=== PATIENT | male | born 1960 | race Caucasian/White ===

== ENCOUNTER 2018-08-19 12:47 | Inpatient (IN) | payer SELFPAY ==
[2018-08-19] MEDS ORDERED: PIPERACILLIN/TAZOBACTAM 3.375 GM VIAL IV ONE (13:06)
[2018-08-19] MEDS ORDERED: VANCOMYCIN HCL INJ 1000 MG VIAL IV ONE (13:06)
[2018-08-19] MEDS ORDERED: NORMAL SALINE 1000 ML 1,000 ML IV ONE (13:13)
[2018-08-19 13:22] LABS: HEMATOCRIT 43.8 % (37.9-51.0); HEMOGLOBIN 14.4 g/dL (13.5-17.0); MEAN CORPUSCULAR HEMOGLOBIN 29.3 pg (27.0-33.4); MEAN CORPUSCULAR HGB CONC 32.9 g/dL (32.0-36.0); MEAN CORPUSCULAR VOLUME 89 fl (80-97); PLATELET COUNT 301 10^3/uL (150-450); RED BLOOD COUNT 4.93 10^6/uL (4.35-5.55); RED CELL DISTRIBUTION WIDTH 14.9 % (11.5-14.0); WHITE BLOOD COUNT 23.4 10^3/uL (4.0-10.5)
[2018-08-19] MEDS ORDERED: RINGERS SOLUTION,LACTATED 1,000 ML IV ONE ×2 (13:43→13:44)
[2018-08-19 13:44] LABS: ALANINE AMINOTRANSFERASE 44 U/L (21-72); ALBUMIN 3.5 g/dL (3.5-5.0); ALKALINE PHOSPHATASE 85 U/L (38-126); ANION GAP 15 (5-19); ASPARTATE AMINO TRANSFERASE 36 U/L (17-59); BILIRUBIN,DIRECT 0.7 mg/dL (0.0-0.4); BILIRUBIN,TOTAL 1.4 mg/dL (0.2-1.3); BLOOD UREA NITROGEN 27 mg/dL (7-20); CALCIUM 8.7 mg/dL (8.4-10.2); CARBON DIOXIDE 25 mmol/L (22-30); CHLORIDE 99 mmol/L (98-107); GLUCOSE 231 mg/dL (75-110); POTASSIUM 4.4 mmol/L (3.6-5.0); SODIUM 139.3 mmol/L (137-145); TOTAL PROTEIN 6.3 g/dL (6.3-8.2)
--- NOTE | 2018-08-19 13:50 | ER Document Report ---
ED General - General Chief Complaint: Shortness Of Breath Stated Complaint: DIFFICULTY BREATHING Time Seen by Provider: 08/19/18 13:05 Notes: Patient is a 58-year-old male who presents today with the onset 4 days ago of a fever of 101 with some chills. He then developed some shortness of breath with coughing. He denies any and all chest pain. No calf pain or leg swelling above baseline. Diarrhea x2 yesterday with vomiting x1. Patient denies any sore throat, difficulty swallowing, flank pain or dysuria. Patient went to his primary care physician was diagnosed with a lower lobe pneumonia and found to have an oxygen saturation of 89%. Patient has no past medical history of asthma or COPD. TRAVEL OUTSIDE OF THE [place] IN LAST 30 DAYS: No - Related Data Allergies/Adverse Reactions: No Known Allergies Allergy (Verified 02/03/16 00:46) Past Medical History - Social History Smoking Status: Never Smoker Family History: Reviewed & Not Pertinent Patient has suicidal ideation: No Patient has homicidal ideation: No - Past Medical History Cardiac Medical History: Reports: Hx Hypertension Pulmonary Medical History: Reports: Hx Bronchitis Renal/ Medical History: Denies: Hx Peritoneal Dialysis Past Surgical History: Reports: Hx Orthopedic Surgery - L knee x2 - Immunizations Hx Diphtheria, Pertussis, Tetanus Vaccination: Yes Review of Systems - Review of Systems Constitutional: Fever EENT: Nose congestion, Nose discharge. denies: Eye discharge Cardiovascular: denies: Chest pain, Palpitations Respiratory: Cough, Short of breath. denies: Hurts to breathe Gastrointestinal: Diarrhea, Vomiting Genitourinary: denies: Dysuria Musculoskeletal: denies: Leg swelling Skin: Other - no hives. denies: Rash Neurological/Psychological: Other - no slurred speech -: Yes All other systems reviewed and negative Physical Exam - Vital signs Vitals: Temp Pulse Resp BP 99.2 F 133 H 30 H 126/76 H 08/19/18 12:59 08/19/18 12:59 08/19/18 12:59 08/19/18 12:59 Interpretation: Normal Notes: Reviewed vital signs and nursing note as charted by RN. CONSTITUTIONAL: Alert and oriented and responds appropriately to questions. Well-appearing; well-nourished HEAD: Normocephalic; atraumatic EYES: PERRL; Conjunctivae clear, sclerae non-icteric ENT: Normal nose; minimal bilaterally nonpurulent rhinorrhea; moist mucous membranes; pharynx without lesions noted NECK: Supple without meningismus; non-tender; no cervical lymphadenopathy, no masses CARD: Regular rate and rhythm; no murmurs; symmetric distal pulses RESP: Normal chest excursion; minimal tachypnea; patient has rhonchi to the right lower lung field without wheezing or rales appreciated ABD/GI: Normal bowel sounds; non-distended; soft, non-tender BACK: The back appears normal and is non-tender to palpation EXT: Normal ROM in all joints; non-tender to palpation; 1 plus pitting edema to bilateral lower extremities which is baseline according the patient SKIN: No acute lesions noted NEURO: CN 2-12 intact; 5/5 bilateral upper and lower extremity strength with sensation intact to light touch PSYCH: The patient's mood and manner are appropriate. Grooming and personal hygiene are appropriate. Course - Re-evaluation Re-evalutation: Given the history and physical examination we will order a portable x-ray of the chest, basic labs, blood cultures, lactic acid, and provide broad-spectrum antibiotics. Patient denies any and all chest pain, calf pain or leg swelling, recent trips or travel. Patient had a fever as recorded. I do believe pulmonary embolism to be unlikely. 08/19/18 13:45 White blood cell count and lactic acid as recorded. We have provided 30 cc/kg of fluid. 08/19/18 14:27 Labs as recorded. Lactic acid as recorded. Right lower lobe pneumonia on x- ray. Patient will be admitted to the hospitalist for further evaluation. - Vital Signs Vital signs: Temp Pulse Resp BP Pulse Ox 99.2 F 133 H 30 H 126/76 H 08/19/18 12:59 08/19/18 12:59 08/19/18 12:59 08/19/18 12:59 - Laboratory Result Diagrams: 08/19/18 13:02 08/19/18 13:02 Laboratory results interpreted by me: 08/19/18 08/19/18 08/19/18 13:02 13:02 13:02 WBC 23.4 H RDW 14.9 H Seg Neuts % (Manual) 92 H Lymphocytes % (Manual) 6 L Monocytes % (Manual) 2 L Abs Neuts (Manual) 21.5 H BUN 27 H Creatinine 1.94 H Est GFR ( Amer) 43 L Est GFR (Non-Af Amer) 36 L Glucose 231 H Lactic Acid 2.5 H Total Bilirubin 1.4 H Direct Bilirubin 0.7 H Critical Care Note - Critical Care Note Total time excluding time spent on procedures (mins): 35 Discharge - Discharge Clinical Impression: Right lower lobe consolidation, Hypoxia Leukocytosis Qualifiers: Leukocytosis type: unspecified Qualified Code(s): D72.829 - Elevated white blood cell count, unspecified Sepsis Qualifiers: Sepsis type: sepsis due to unspecified organism Qualified Code(s): A41.9 - Sepsis, unspecified organism Condition: Fair Disposition: ADMITTED INPATIENT Unit Admitted: [facility]
--- NOTE | 2018-08-19 13:56 | RADIOLOGY REPORT (SQ) ---
EXAM DESCRIPTION: CHEST SINGLE VIEW COMPLETED DATE/TIME: 08/19/2018 1:43 pm REASON FOR STUDY: difficulty breathing COMPARISON: 02/03/2016 EXAM PARAMETERS: NUMBER OF VIEWS: One view. TECHNIQUE: Single frontal radiographic view of the chest acquired. RADIATION DOSE: NA LIMITATIONS: None. FINDINGS: LUNGS AND PLEURA: Fairly dense opacification is present in the right base. Portions of th e right hemidiaphragm area obscured. MEDIASTINUM AND HILAR STRUCTURES: No masses. Contour normal. HEART AND VASCULAR STRUCTURES: Heart normal in size. Normal vasculature. BONES: No acute findings. HARDWARE: None in the chest. OTHER: No other significant finding. IMPRESSION: Right middle lobe or lower lobe pneumonia. TECHNICAL DOCUMENTATION: JOB ID: [id number] [employer]- All Rights Reserved Reading location - IP/workstation name: [email or web address]
[2018-08-19 14:05] LABS: ABSOLUTE LYMPHOCYTES# (MANUAL) 1.4 10^3/uL (0.5-4.7); ABSOLUTE MONOCYTES # (MANUAL) 0.5 10^3/uL (0.1-1.4); ABSOLUTE NEUTROPHILS# (MANUAL) 21.5 10^3/uL (1.7-8.2); ANISOCYTOSIS SLIGHT; BASOPHILS % (MANUAL) 0 % (0-2); EOSINOPHILS % (MANUAL) 0 % (0-6); LYMPHOCYTES % (MANUAL) 6 % (13-45); MONOCYTES % (MANUAL) 2 % (3-13); PLATELET CLUMPS PRESENT; SEGMENTED NEUTROPHILS % (MAN) 92 % (42-78); TOTAL CELLS COUNTED 100
[2018-08-19 14:06] LABS: PLATELET COMMENT ADEQUATE
--- NOTE | 2018-08-19 15:23 | PDOC H&P ---
History of Present Illness Admission Date/PCP: 08/19/18 14:57 KATERYNA VALENCIA MD History of Present Illness: NAILA CANALES is a 58 year old male with a history of hypertension and seasonal allergies who reports from his primary care provider's office with hypoxia and shortness of breath. He said he first started feeling bad about 4 days ago. Had fevers at home, 1 of which was recorded at 101 F. He was apparently sweating so bad that one night they had to change to bed sheets 3 times because he sweated through them. He has not been eating very much, has been try to drink some fluids. He was having a lot of shortness of breath. He had a productive cough. His primary care provider's office today and apparently was hypoxic on room air 87% SPO2. He was sent to the emergency department. Was found to have a right lower lobe pneumonia on chest x-ray. He also had some evidence of organ dysfunction. Past Medical History Cardiac Medical History: Reports: Hypertension Pulmonary Medical History: Reports: Bronchitis Past Surgical History Past Surgical History: Reports: Orthopedic Surgery - L knee x2 Social History Smoking Status: Never Smoker Family History Family History: Reviewed & Not Pertinent Parental Family History Reviewed: Yes - Both parents have hypertension Children Family History Reviewed: Yes - Brother and sister have hypertension Sibling(s) Family History Reviewed.: Yes - Nothing known Medication/Allergy Home Medications: Albuterol Sulfate [Proair Hfa Inhalation Aerosol 8.5 gm Mdi] 1 puff IH Q6HP PRN 08/19/18 Amlodipine Besylate [Norvasc 10 mg Tablet] 10 mg PO DAILY 08/19/18 Furosemide [Lasix 40 mg Tablet] 40 mg PO QAM 08/19/18 Losartan Potassium [Cozaar 50 mg Tablet] 100 mg PO DAILY 08/19/18 Montelukast Sodium [Singulair 10 mg Tablet] 10 mg PO QHS 08/19/18 Potassium Chloride [Klor-Con 10 Meq Capsule ER] 10 meq PO DAILY 08/19/18 Prednisone [Deltasone 5 mg Tablet] 5 mg PO DAILY 08/19/18 Allergies/Adverse Reactions: No Known Allergies Allergy (Verified 02/03/16 00:46) Review of Systems All systems: reviewed and no additional remarkable complaints except as stated - All systems were reviewed and were negative except as noted in the HPI Physical Exam Vital Signs: Temp Pulse Resp BP Pulse Ox 99.2 F 133 H 30 H 126/76 H 08/19/18 12:59 08/19/18 12:59 08/19/18 12:59 08/19/18 12:59 Intake & Output 08/18/18 08/19/18 08/20/18 06:59 06:59 06:59 Intake Total 683 Balance 683 Weight 92.986 kg General appearance: PRESENT: cooperative, disheveled, obese, other - Moderate distress Head exam: PRESENT: atraumatic, normocephalic Eye exam: PRESENT: EOMI, PERRLA. ABSENT: conjunctival injection, nystagmus, scleral icterus Ear exam: PRESENT: normal external ear exam Mouth exam: PRESENT: dry mucosa, neck supple Throat exam: ABSENT: post pharyngeal erythema Neck exam: PRESENT: full ROM. ABSENT: carotid bruit, JVD, lymphadenopathy, meningismus, tenderness, thyromegaly Respiratory exam: PRESENT: crackles - Right lower lobe, tachypnea, unlabored. ABSENT: accessory muscle use, chest wall tenderness, prolonged expiratory phas, rhonchi, symmetrical, wheezes Cardiovascular exam: PRESENT: tachycardia Pulses: PRESENT: normal carotid pulses Vascular exam: PRESENT: normal capillary refill GI/Abdominal exam: PRESENT: normal bowel sounds, soft. ABSENT: distended, guarding, rebound, tenderness Extremities exam: ABSENT: clubbing, pedal edema Musculoskeletal exam: PRESENT: normal inspection. ABSENT: deformity Neurological exam: PRESENT: alert, awake, oriented to person, oriented to place, oriented to time, oriented to situation, CN II-XII grossly intact. ABSENT: mot or sensory deficit Psychiatric exam: PRESENT: appropriate affect, normal mood Skin exam: PRESENT: dry, warm Results Laboratory Results: 08/19/18 13:02 08/19/18 13:02 08/19/18 08/19/18 08/19/18 13:02 13:02 13:02 WBC 23.4 H RBC 4.93 Hgb 14.4 Hct 43.8 MCV 89 MCH 29.3 MCHC 32.9 RDW 14.9 H Plt Count 301 Seg Neutrophils % Not Reportable Lymphocytes % Not Reportable Monocytes % Not Reportable Eosinophils % Not Reportable Basophils % Not Reportable Absolute Neutrophils Not Reportable Absolute Lymphocytes Not Reportable Absolute Monocytes Not Reportable Absolute Eosinophils Not Reportable Absolute Basophils Not Reportable Sodium 139.3 Potassium 4.4 Chloride 99 Carbon Dioxide 25 Anion Gap 15 BUN 27 H Creatinine 1.94 H Est GFR ( Amer) 43 L Est GFR (Non-Af Amer) 36 L Glucose 231 H Lactic Acid 2.5 H Calcium 8.7 Total Bilirubin 1.4 H AST 36 ALT 44 Alkaline Phosphatase 85 Total Protein 6.3 Albumin 3.5 08/19/18 13:02 Troponin I 0.075 Impressions: Chest X-Ray 08/19/18 12:56 IMPRESSION: Right middle lobe or lower lobe pneumonia. Assessment and Plan - Diagnosis (1) Sepsis Qualifiers: Sepsis type: sepsis due to unspecified organism Qualified Code(s): A41.9 - Sepsis, unspecified organism Is this a current diagnosis for this admission?: Yes Plan: Due to the pneumonia. Blood cultures are pending. Empiric antibiotics have been started. Fluid resuscitation. Evidence of organ dysfunction as indicated by acute kidney injury, along with leukocytosis, fever, and tachycardia. (2) Acute respiratory failure with hypoxia Is this a current diagnosis for this admission?: Yes Plan: Continue supplemental O2 to maintain SPO2 greater than 90%. (3) Right lower lobe pneumonia Qualifiers: Pneumonia type: due to unspecified organism Qualified Code(s): J18.1 - Lobar pneumonia, unspecified organism Is this a current diagnosis for this admission?: Yes Plan: As noted above. We will also attempt to obtain a sputum culture. (4) Acute kidney injury Is this a current diagnosis for this admission?: Yes Plan: Due to sepsis. Antibiotics and IV fluids have been ordered. We will monitor urine output and electrolytes closely. - Time Time Spent with patient: 70 minutes Time Spent with patient: 35 or more minutes - Inpatient Certification Based on my medical assessment, after consideration of the patient's comorbidities, presenting symptoms, or acuity I expect that the services needed warrant INPATIENT care.: Yes I certify that my determination is in accordance with my understanding of Medicare's requirements for reasonable and necessary INPATIENT services [42 CFR 412.3e].: Yes Medical Necessity: Need Close Monitoring Due to Risk of Patient Decompensation, Need For IV Fluids, Need for IV Antibiotics, Risk of Complication if Not Cared For in Hospital
[2018-08-19 15:31] LABS: APPEARANCE,URINE CLEAR; BILIRUBIN,URINE NEGATIVE (NEGATIVE); COLOR,URINE YELLOW; GLUCOSE, URINE 50 mg/dL (NEGATIVE); KETONES,URINE NEGATIVE (NEGATIVE); LEUKOCYTE ESTERASE,URINE NEGATIVE (NEGATIVE); NITRITE,URINE NEGATIVE (NEGATIVE); PROTEIN,URINE 30 mg/dL (NEGATIVE); URINE SPECIFIC GRAVITY 1.012; UROBILINOGEN,URINE NEGATIVE mg/dL (<2.0)
[2018-08-19] MEDS ORDERED: LORAZEPAM INJ 2 MG/1 ML VIAL IV ONE (16:26)
[2018-08-19] MEDS ORDERED: AZITHROMYCIN 500 MG in DEXTROSE 5%-WATER 250 ML IV SCH (18:00)
[2018-08-19] MEDS: NORMAL SALINE 1000 ML 1,000 ML IV PRN (20:51)
[2018-08-19] MEDS: IPRATROPIUM/ALBUTEROL 0.5-2.5 MG/3 ML AMPUL NEB PRN (20:55)
[2018-08-19] MEDS: HEPARIN SOD (PORCINE) 5,000 UNIT/ML 1 ML SYRINGE SUBCUT SCH (21:42)
[2018-08-19] MEDS: MONTELUKAST SODIUM 10 MG TABLET PO SCH (21:47)
[2018-08-19] MEDS ORDERED: CEFTRIAXONE 1 GM/D5W RTU 1 GM/50 ML RTUPB IV SCH (22:00)
[2018-08-19] MEDS ORDERED: CEFTRIAXONE SODIUM 1,000 MG in DEXTROSE 5%-WATER 50 ML IV SCH (22:00)
[2018-08-19] MEDS: ACETAMINOPHEN 325 MG TABLET PO PRN (23:27)
[2018-08-20] MEDS: IPRATROPIUM/ALBUTEROL 0.5-2.5 MG/3 ML AMPUL NEB PRN ×3 (00:11→07:40)
[2018-08-20] MEDS: LORAZEPAM INJ 2 MG/1 ML VIAL IV PRN ×5 (00:13→22:41)
[2018-08-20] MEDS: HEPARIN SOD (PORCINE) 5,000 UNIT/ML 1 ML SYRINGE SUBCUT SCH ×2 (05:19→15:11)
[2018-08-20 06:16] LABS: HEMATOCRIT 41.9 % (37.9-51.0); HEMOGLOBIN 13.7 g/dL (13.5-17.0); MEAN CORPUSCULAR HGB CONC 32.6 g/dL (32.0-36.0); MEAN CORPUSCULAR VOLUME 89 fl (80-97); PLATELET COUNT 208 10^3/uL (150-450); RED BLOOD COUNT 4.71 10^6/uL (4.35-5.55); RED CELL DISTRIBUTION WIDTH 14.7 % (11.5-14.0); WHITE BLOOD COUNT 20.5 10^3/uL (4.0-10.5)
[2018-08-20] MEDS: NORMAL SALINE 1000 ML 1,000 ML IV PRN ×2 (06:16→15:07)
[2018-08-20 06:29] LABS: ALANINE AMINOTRANSFERASE 41 U/L (21-72); ALBUMIN 3.1 g/dL (3.5-5.0); ALKALINE PHOSPHATASE 78 U/L (38-126); ANION GAP 12 (5-19); ASPARTATE AMINO TRANSFERASE 46 U/L (17-59); BILIRUBIN,DIRECT 0.7 mg/dL (0.0-0.4); BILIRUBIN,TOTAL 0.9 mg/dL (0.2-1.3); BLOOD UREA NITROGEN 27 mg/dL (7-20); CARBON DIOXIDE 25 mmol/L (22-30); CHLORIDE 105 mmol/L (98-107); GLUCOSE 104 mg/dL (75-110); POTASSIUM 3.7 mmol/L (3.6-5.0); SODIUM 141.6 mmol/L (137-145); TOTAL PROTEIN 6.1 g/dL (6.3-8.2)
[2018-08-20] MEDS ORDERED: NORMAL SALINE 1000 ML 1,000 ML IV ONE (08:20)
[2018-08-20] MEDS ORDERED: AMLODIPINE BESYLATE 10 MG TABLET PO SCH (10:00)
[2018-08-20] MEDS ORDERED: PREDNISONE 5 MG TABLET PO SCH (10:00)
[2018-08-20 10:53] LABS: ARTERIAL BLOOD BASE EXCESS -2.7 mmol/L; ARTERIAL BLOOD FIO2 80%; ARTERIAL BLOOD H2CO3 0.93 mmol/L (1.05-1.35); ARTERIAL BLOOD HCO3 20.4 mmol/L (20-24); ARTERIAL BLOOD O2 SATURATION 92.7 % (94-98); ARTERIAL BLOOD PCO2 30.9 mmHg (35-45); ARTERIAL BLOOD PH 7.44 (7.35-7.45); ARTERIAL BLOOD PO2 61.7 mmHg (80-100); ARTERIAL BLOOD TOTAL CO2 21.4 mmol/L (23-27)
--- NOTE | 2018-08-20 12:12 | RADIOLOGY REPORT (SQ) ---
EXAM DESCRIPTION: CHEST SINGLE VIEW COMPLETED DATE/TIME: 08/20/2018 11:44 am REASON FOR STUDY: hypoxia COMPARISON: None. EXAM PARAMETERS: NUMBER OF VIEWS: One view. TECHNIQUE: Single frontal radiographic view of the chest acquired. RADIATION DOSE: NA LIMITATIONS: None. FINDINGS: LUNGS AND PLEURA: Worsening infiltrate in the right lung. Worsening infiltrate in the rig ht lower lobe with interval development of infiltrate in the right upper lobe. Possible right pleura l effusion. Left lung relatively clear. MEDIASTINUM AND HILAR STRUCTURES: No masses. Contour normal. HEART AND VASCULAR STRUCTURES: Mild cardiomegaly. BONES: No acute findings. HARDWARE: None in the chest. OTHER: No other significant finding. IMPRESSION: WORSENING INFILTRATE IN THE RIGHT LUNG CONSISTENT WITH PNEUMONIA. TECHNICAL DOCUMENTATION: JOB ID: [id number] [email or web address]- All Rights Reserved Reading location - IP/workstation name: [email or web address]
[2018-08-20] MEDS ORDERED: VANCOMYCIN HCL 0 MG in DEXTROSE 5%-WATER 250 ML IV NR (12:45)
[2018-08-20] MEDS: ACETAMINOPHEN 325 MG TABLET PO PRN ×2 (13:23→23:09)
[2018-08-20] MEDS ORDERED: SUCCINYLCHOLINE CHLORIDE INJ 200 MG/10 ML VIAL ONE (13:31)
[2018-08-20 14:00] LABS: ARTERIAL BLOOD BASE EXCESS -2.9 mmol/L; ARTERIAL BLOOD H2CO3 1.07 mmol/L (1.05-1.35); ARTERIAL BLOOD HCO3 21.3 mmol/L (20-24); ARTERIAL BLOOD O2 SATURATION 97.3 % (94-98); ARTERIAL BLOOD PCO2 35.5 mmHg (35-45); ARTERIAL BLOOD PO2 95.8 mmHg (80-100); ARTERIAL BLOOD TOTAL CO2 22.3 mmol/L (23-27)
[2018-08-20 14:10] LABS: ARTERIAL BLOOD FIO2 100%
[2018-08-20 14:54] LABS: ANION GAP 13 (5-19); BLOOD UREA NITROGEN 29 mg/dL (7-20); CALCIUM 7.9 mg/dL (8.4-10.2); CARBON DIOXIDE 23 mmol/L (22-30); CHLORIDE 106 mmol/L (98-107); GLUCOSE 91 mg/dL (75-110); SODIUM 142.4 mmol/L (137-145)
[2018-08-20] MEDS: VANCOMYCIN HCL 750 MG in DEXTROSE 5%-WATER 250 ML IV SCH (15:08)
[2018-08-20] MEDS ORDERED: FUROSEMIDE INJ/PF 20 MG/2 ML SDV IV ONE (17:51)
[2018-08-20] MEDS ORDERED: NORMAL SALINE 1000 ML 1,000 ML IV PRN (17:51)
[2018-08-20] MEDS ORDERED: ALBUTEROL SULFATE 0.083% NEB 2.5 MG/3 ML AMPUL NEB PRN (19:14)
--- NOTE | 2018-08-20 19:22 | PDOC PROGRESS REPORT ---
Subjective Progress Note for:: 08/20/18 Subjective:: NAILA CANALES is a 58 year old male with a history of hypertension and seasonal allergies who was admitted 08/19/18 for RML and RLL pneumonia. The patient was seen on morning rounds and again twice this afternoon (twice seen at the bedside by Dr. Zamorano, as well). The patient complained of worsening dyspnea, productive cough, and fatigue. The patient's worsening respiratory status and vital signs required upgrade to ICU where closer monitoring and urgent intubation could be better facilitated if necessary. Fortunately, this afternoon his vital signs appear to have stabilized and at time of this dictation he remains compensated on BiPAP support. Met with the patient's family members multiple times; all questions and concerns were addressed to their satisfaction. Dr. Zamorano was kept up-to-date on the patient's progress throughout the day. Reason For Visit: ACUTE HYPOXIC RESPIRATORY FAILURE,SEPSIS,CAP Physical Exam Vital Signs: Temp Pulse Resp BP Pulse Ox 101.4 F H 69 29 H 124/87 H 97 08/20/18 16:00 08/20/18 18:00 08/20/18 18:00 08/20/18 18:00 08/20/18 18:00 Intake & Output 08/19/18 08/20/18 08/21/18 06:59 06:59 06:59 Intake Total 4400 1417 Output Total 75 350 Balance 4325 1067 Weight 96.5 kg 98.3 kg General appearance: PRESENT: cooperative, severe distress, well-developed, well- nourished Head exam: PRESENT: atraumatic, normocephalic Eye exam: PRESENT: conjunctiva pink, EOMI, PERRLA. ABSENT: scleral icterus Ear exam: PRESENT: normal external ear exam Mouth exam: PRESENT: moist, tongue midline Neck exam: ABSENT: carotid bruit, JVD, lymphadenopathy, thyromegaly Respiratory exam: PRESENT: accessory muscle use, decreased breath sounds - Overweight throughout, rhonchi - Throughout; R>L, symmetrical, tachypnea. ABSENT: rales, wheezes Cardiovascular exam: PRESENT: +S1, +S2, tachycardia. ABSENT: diastolic murmur, rubs, systolic murmur Pulses: PRESENT: normal dorsalis pedis pul Vascular exam: PRESENT: normal capillary refill GI/Abdominal exam: PRESENT: normal bowel sounds, soft. ABSENT: distended, guarding, mass, organolmegaly, rebound, tenderness Rectal exam: PRESENT: deferred Extremities exam: PRESENT: full ROM. ABSENT: calf tenderness, clubbing, pedal edema Neurological exam: PRESENT: alert, awake, oriented to person, oriented to place, oriented to situation, CN II-XII grossly intact, other - Intermittent mild confusion (unable to state month, but appropriately identified year). ABSENT: motor sensory deficit Psychiatric exam: PRESENT: appropriate affect, normal mood. ABSENT: homicidal ideation, suicidal ideation Skin exam: PRESENT: dry, intact, warm. ABSENT: cyanosis, rash Results Laboratory Results: 08/20/18 04:55 08/20/18 14:17 08/20/18 08/20/18 08/20/18 04:55 04:55 10:10 WBC 20.5 H RBC 4.71 Hgb 13.7 Hct 41.9 MCV 89 MCH 29.0 MCHC 32.6 RDW 14.7 H Plt Count 208 Carbonic Acid 0.93 L HCO3/H2CO3 Ratio 21:1 ABG pH 7.44 ABG pCO2 30.9 L ABG pO2 61.7 L ABG HCO3 20.4 ABG O2 Saturation 92.7 L ABG Base Excess -2.7 FiO2 80% Sodium 141.6 Potassium 3.7 Chloride 105 Carbon Dioxide 25 Anion Gap 12 BUN 27 H Creatinine 1.84 H Est GFR ( Amer) 46 L Est GFR (Non-Af Amer) 38 L Glucose 104 Lactic Acid Calcium 8.0 L Total Bilirubin 0.9 AST 46 ALT 41 Alkaline Phosphatase 78 Total Protein 6.1 L Albumin 3.1 L 08/20/18 08/20/18 08/20/18 13:35 14:17 14:17 WBC RBC Hgb Hct MCV MCH MCHC RDW Plt Count Carbonic Acid 1.07 HCO3/H2CO3 Ratio 19:1 ABG pH 7.40 ABG pCO2 35.5 ABG pO2 95.8 ABG HCO3 21.3 ABG O2 Saturation 97.3 ABG Base Excess -2.9 FiO2 100% Sodium 142.4 Potassium 4.0 Chloride 106 Carbon Dioxide 23 Anion Gap 13 BUN 29 H Creatinine 1.59 H Est GFR ( Amer) 54 L Est GFR (Non-Af Amer) 45 L Glucose 91 Lactic Acid 1.9 Calcium 7.9 L Total Bilirubin AST ALT Alkaline Phosphatase Total Protein Albumin 08/19/18 08/20/18 13:02 14:17 Troponin I 0.075 NT-Pro-B Natriuret Pep 0 H Impressions: Chest X-Ray 08/20/18 00:00 IMPRESSION: WORSENING INFILTRATE IN THE RIGHT LUNG CONSISTENT WITH PNEUMONIA. Assessment and Plan - Diagnosis (1) Pneumonia Qualifiers: Pneumonia type: due to unspecified organism Laterality: right Lung location: unspecified part of lung Qualified Code(s): J18.9 - Pneumonia, unspecified organism Is this a current diagnosis for this admission?: Yes Plan: Worsened. Follow-up chest x-ray demonstrates worsening right-sided pneumonia. ABG demonstrates compensated respiratory alkalosis; improved with increased BiPAP support. Patient is upgraded to ICU status. Continue supplemental oxygen and BiPAP as needed. Monitor closely for worsening respiratory status and need for urgent intubation. Antibiotics are escalated to IV vancomycin, cefepime, and Levaquin due to worsening PNA by CXR and sepsis. Scheduled and as needed nebulizer treatments. Mucinex twice daily. (2) Acute respiratory failure with hypoxia Is this a current diagnosis for this admission?: Yes Plan: Secondary to #1. Evaluation and management as above. (3) Acute kidney injury Is this a current diagnosis for this admission?: Yes Plan: Secondary to sepsis. Slight improvement today. Patient with worsened respiratory status and "pink, frothy, sputum" per nursing. Creatinine remains unchanged; unknown baseline creatinine. Unclear CHF history (patient and deny, although, patient takes losartan, amlodipine, and furosemide as home medications). Some concern for slight fluid overload. We have been is at the nighttime nurse Will stop maintenance IV fluids; patient will receive greater than 1 L IV fluids daily through antibiotics alone. Strict I&O's. Daily weights. Avoid nephrotoxic medications as able. Monitor daily chemistries. Consider nephrology consultation if does not continue to improve with resolution of sepsis. (4) Sepsis Qualifiers: Sepsis type: sepsis due to unspecified organism Qualified Code(s): A41.9 - Sepsis, unspecified organism Is this a current diagnosis for this admission?: Yes Plan: Secondary to the pneumonia. Blood cultures are negative at 24 hours. Sputum culture is pending. CXR worsening. Evidence of organ dysfunction as indicated by acute kidney injury, along with leukocytosis, fever, and tachycardia. Patient received IVF resuscitation; decreased maintenance IV fluids secondary to concern for fluid overload. We will continue to receive greater than 1 L daily through IV antibiotic's. Patient received 24 hours of IV azithromycin and Rocephin. Escalated today to IV vancomycin, Levaquin, and cefepime. Will adjust as cultures result. - Time Time Spent with patient: 35 or more minutes Total Critical Time (Minutes): 30 Medications reviewed and adjusted accordingly: Yes Anticipated discharge: Home - Inpatient Certification Based on my medical assessment, after consideration of the patient's comorbidities, presenting symptoms, or acuity I expect that the services needed warrant INPATIENT care.: Yes I certify that my determination is in accordance with my understanding of Medicare's requirements for reasonable and necessary INPATIENT services [42 CFR 412.3e].: Yes Medical Necessity: Need Close Monitoring Due to Risk of Patient Decompensation, Need for Nebulizer Therapy and Monitoring of Response, Need for IV Antibiotics, Risk of Complication if Not Cared For in Hospital
[2018-08-20 20:33] LABS: ARTERIAL BLOOD BASE EXCESS -2.1 mmol/L; ARTERIAL BLOOD H2CO3 0.98 mmol/L (1.05-1.35); ARTERIAL BLOOD HCO3 21.3 mmol/L (20-24); ARTERIAL BLOOD PCO2 32.4 mmHg (35-45); ARTERIAL BLOOD PH 7.44 (7.35-7.45); ARTERIAL BLOOD PO2 66.5 mmHg (80-100); ARTERIAL BLOOD TOTAL CO2 22.3 mmol/L (23-27)
[2018-08-20 20:34] LABS: ARTERIAL BLOOD FIO2 80% BIPAP
[2018-08-20] MEDS: PROPOFOL 1,000 MG/100 ML INFUS..BTL IV PRN ×2 (21:10→23:28)
[2018-08-20] MEDS: IPRATROPIUM/ALBUTEROL 0.5-2.5 MG/3 ML AMPUL NEB SCH (21:26)
[2018-08-20] MEDS: FENTANYL CITRATE INJ/PF 100 MCG/2 ML AMPUL IV PRN (21:30)
[2018-08-20] MEDS ORDERED: NOREPINEPHRINE BITARTRATE INJ/PF 4 MG/4 ML SDV IV ONE (21:50)
[2018-08-20] MEDS: DEXTROSE 5%-WATER 250 ML with NOREPINEPHRINE BITARTRATE 4 MG IV PRN ×2 (21:55)
[2018-08-20] MEDS ORDERED: GUAIFENESIN 600 MG TABLET.SA PO SCH (22:00)
[2018-08-20] MEDS ORDERED: CEFEPIME 1 GM/D5W RTU 1 GM/50 ML RTUPB IV SCH (22:00)
--- NOTE | 2018-08-20 22:03 | RADIOLOGY REPORT (SQ) ---
EXAM DESCRIPTION: XR CHEST 1 VIEW COMPLETED DATE/TME: 08/20/2018 21:30 CLINICAL HISTORY: 58 years, Male, intubation COMPARISON: Multiple priors, most recent from 08/19/2018. NUMBER OF VIEWS: Two TECHNIQUE: Two frontal views of the chest were obtained LIMITATIONS: None. FINDINGS: Endotracheal tube tip is located in the trachea, approximately 4.3 cm above the boni. Enteric drainage tube tip projects about the gastric body. Cardiac and mediastinal contours are stable in appearance. Widespread opacity throughout both lungs appears substantially increased from the previous examination. Suspect small right pleural effusion. No pneumothorax. IMPRESSION: Interval increase in widespread bilateral airspace disease. Considerations include multifocal pneumonia, pulmonary edema, or ARDS. Endotracheal tube tip is located 4.3 cm above the boni. Enteric tube tip is located within the gastric body. copyright 2010 [employer]- All Rights Reserved
[2018-08-20] MEDS ORDERED: CEFTRIAXONE 2 GM/D5W RTU 2 GM/50 ML RTUPB IV ONE (22:22)
[2018-08-20] MEDS ORDERED: MIDAZOLAM HCL 50 MG/100 ML RTUINJ ONE (22:34)
[2018-08-20] MEDS: MIDAZOLAM HCL 50 MG/100 ML RTUINJ IV PRN (22:35)
[2018-08-21] MEDS: MONTELUKAST SODIUM 10 MG TABLET PO SCH
[2018-08-21 00:29] LABS: ARTERIAL BLOOD BASE EXCESS -4.3 mmol/L; ARTERIAL BLOOD H2CO3 1.09 mmol/L (1.05-1.35); ARTERIAL BLOOD HCO3 20.4 mmol/L (20-24); ARTERIAL BLOOD O2 SATURATION 97.1 % (94-98); ARTERIAL BLOOD PCO2 36.2 mmHg (35-45); ARTERIAL BLOOD PH 7.37 (7.35-7.45); ARTERIAL BLOOD PO2 94.7 mmHg (80-100); ARTERIAL BLOOD TOTAL CO2 21.5 mmol/L (23-27)
[2018-08-21 00:32] LABS: ARTERIAL BLOOD FIO2 100%
[2018-08-21] MEDS ORDERED: MIDAZOLAM HCL 50 MG/100 ML RTUINJ ONE (01:18)
[2018-08-21] MEDS: PROPOFOL 1,000 MG/100 ML INFUS..BTL IV PRN ×8 (01:20→22:37)
[2018-08-21] MEDS ORDERED: PHARMACY COMMUNICATION ORDER MC NR (01:30)
[2018-08-21] MEDS: MIDAZOLAM HCL 50 MG/100 ML RTUINJ IV PRN ×6 (01:30→20:40)
[2018-08-21] MEDS: IPRATROPIUM/ALBUTEROL 0.5-2.5 MG/3 ML AMPUL NEB SCH ×4 (01:42→20:51)
[2018-08-21] MEDS ORDERED: CEFTRIAXONE 2 GM/D5W RTU 2 GM/50 ML RTUPB IV ONE (02:00)
[2018-08-21] MEDS ORDERED: ACETAMINOPHEN 325 MG TABLET NG PRN (02:00)
[2018-08-21] MEDS ORDERED: FENTANYL CITRATE INJ/PF 100 MCG/2 ML AMPUL IV ONE (02:45)
[2018-08-21] MEDS ORDERED: NOREPINEPHRINE BITARTRATE INJ/PF 4 MG/4 ML SDV IV ONE (03:28)
[2018-08-21] MEDS: DEXTROSE 5%-WATER 250 ML with NOREPINEPHRINE BITARTRATE 4 MG IV PRN ×8 (03:32→19:47)
[2018-08-21] MEDS: VANCOMYCIN HCL 750 MG in DEXTROSE 5%-WATER 250 ML IV SCH ×2 (03:36→13:33)
[2018-08-21] MEDS ORDERED: NORMAL SALINE 1000 ML 1,000 ML IV ONE ×2 (04:15→08:00)
[2018-08-21 04:32] LABS: HEMOGLOBIN 11.8 g/dL (13.5-17.0); MEAN CORPUSCULAR HEMOGLOBIN 29.3 pg (27.0-33.4); MEAN CORPUSCULAR HGB CONC 32.7 g/dL (32.0-36.0); MEAN CORPUSCULAR VOLUME 90 fl (80-97); PLATELET COUNT 291 10^3/uL (150-450); RED BLOOD COUNT 4.02 10^6/uL (4.35-5.55); RED CELL DISTRIBUTION WIDTH 15.2 % (11.5-14.0); WHITE BLOOD COUNT 22.7 10^3/uL (4.0-10.5)
[2018-08-21 05:09] LABS: ALANINE AMINOTRANSFERASE 40 U/L (21-72); ALBUMIN 2.2 g/dL (3.5-5.0); ALKALINE PHOSPHATASE 70 U/L (38-126); ANION GAP 12 (5-19); ASPARTATE AMINO TRANSFERASE 33 U/L (17-59); BILIRUBIN,DIRECT 0.5 mg/dL (0.0-0.4); BILIRUBIN,TOTAL 0.5 mg/dL (0.2-1.3); BLOOD UREA NITROGEN 35 mg/dL (7-20); CARBON DIOXIDE 17 mmol/L (22-30); CHLORIDE 111 mmol/L (98-107); GLUCOSE 181 mg/dL (75-110); POTASSIUM 4.2 mmol/L (3.6-5.0); SODIUM 140.2 mmol/L (137-145); TOTAL PROTEIN 4.5 g/dL (6.3-8.2)
[2018-08-21 06:17] LABS: ARTERIAL BLOOD BASE EXCESS -8.5 mmol/L; ARTERIAL BLOOD H2CO3 1.03 mmol/L (1.05-1.35); ARTERIAL BLOOD HCO3 16.8 mmol/L (20-24); ARTERIAL BLOOD O2 SATURATION 96.1 % (94-98); ARTERIAL BLOOD PCO2 34.2 mmHg (35-45); ARTERIAL BLOOD PH 7.31 (7.35-7.45); ARTERIAL BLOOD PO2 88.6 mmHg (80-100); ARTERIAL BLOOD TOTAL CO2 17.8 mmol/L (23-27)
[2018-08-21 06:18] LABS: ARTERIAL BLOOD FIO2 70%
[2018-08-21] MEDS: HEPARIN SOD (PORCINE) 5,000 UNIT/ML 1 ML SYRINGE SUBCUT SCH ×4 (06:45→21:00)
[2018-08-21] MEDS ORDERED: CEFEPIME 2 GM/D5W RTU 2 GM/50 ML RTUPB IV SCH (10:00)
--- NOTE | 2018-08-21 10:23 | EKG REPORT ---
SEVERITY:- ABNORMAL ECG - SINUS TACHYCARDIA PROBABLE LEFT ATRIAL ABNORMALITY LEFT AXIS DEVIATION LOW VOLTAGE IN FRONTAL LEADS BORDERLINE R WAVE PROGRESSION, ANTERIOR LEADS : Confirmed by: Lorri Lowery 21-Aug-2018 10:22:42
--- NOTE | 2018-08-21 10:35 | PDOC PROGRESS REPORT ---
Subjective Progress Note for:: 08/21/18 Subjective:: This is 58 years old male patient with no significant medical history except for hypertension and seasonal allergies, presented with chief complaint of shortness of breath hypoxia and fever. He was admitted on August 19 with a diagnosis of right lower lobe pneumonia. Yesterday patient become tachypneic tachycardic and hypoxic at this point his status is upgraded to ICU. While in ICU his condition further deteriorated and patient requires emergent intubation. His FiO2 is trending down from 100% to 70%. His tidal volumes 450. His chest x-ray shows two third opacification of the right side and evolving consolidation on the left side. Patient has been on vancomycin and ceftriaxone and I switched his ceftriaxone to cefepime. Reason For Visit: ACUTE HYPOXIC RESPIRATORY FAILURE,SEPSIS,CAP Physical Exam Vital Signs: Temp Pulse Resp BP Pulse Ox 99.7 F 92 26 H 103/73 98 08/21/18 08:00 08/21/18 08:23 08/21/18 08:23 08/21/18 08:00 08/21/18 08:23 Intake & Output 08/20/18 08/21/18 08/22/18 06:59 06:59 06:59 Intake Total 4400 4563 388 Output Total 75 1045 150 Balance 4325 3518 238 Weight 96.5 kg 101.5 kg General appearance: PRESENT: no acute distress Head exam: PRESENT: atraumatic Eye exam: PRESENT: conjunctiva pink Neck exam: ABSENT: carotid bruit, JVD, lymphadenopathy, thyromegaly Respiratory exam: PRESENT: decreased breath sounds Cardiovascular exam: PRESENT: RRR. ABSENT: diastolic murmur, rubs, systolic murmur Pulses: PRESENT: normal dorsalis pedis pul Neurological exam: PRESENT: alert, awake Results Laboratory Results: 08/21/18 04:23 08/21/18 04:23 08/20/18 08/20/18 08/20/18 10:10 13:35 14:17 WBC RBC Hgb Hct MCV MCH MCHC RDW Plt Count Carbonic Acid 0.93 L 1.07 HCO3/H2CO3 Ratio 21:1 19:1 ABG pH 7.44 7.40 ABG pCO2 30.9 L 35.5 ABG pO2 61.7 L 95.8 ABG HCO3 20.4 21.3 ABG O2 Saturation 92.7 L 97.3 ABG Base Excess -2.7 -2.9 FiO2 80% 100% Sodium 142.4 Potassium 4.0 Chloride 106 Carbon Dioxide 23 Anion Gap 13 BUN 29 H Creatinine 1.59 H Est GFR ( Amer) 54 L Est GFR (Non-Af Amer) 45 L Glucose 91 Lactic Acid Calcium 7.9 L Total Bilirubin AST ALT Alkaline Phosphatase Total Protein Albumin 08/20/18 08/20/18 08/21/18 14:17 20:20 00:15 WBC RBC Hgb Hct MCV MCH MCHC RDW Plt Count Carbonic Acid 0.98 L 1.09 HCO3/H2CO3 Ratio 21:1 18:1 ABG pH 7.44 7.37 ABG pCO2 32.4 L 36.2 ABG pO2 66.5 L 94.7 ABG HCO3 21.3 20.4 ABG O2 Saturation 94.0 97.1 ABG Base Excess -2.1 -4.3 FiO2 80% BIPAP 100% Sodium Potassium Chloride Carbon Dioxide Anion Gap BUN Creatinine Est GFR ( Amer) Est GFR (Non-Af Amer) Glucose Lactic Acid 1.9 Calcium Total Bilirubin AST ALT Alkaline Phosphatase Total Protein Albumin 08/21/18 08/21/18 08/21/18 04:23 04:23 05:45 WBC 22.7 H RBC 4.02 L Hgb 11.8 L Hct 36.0 L MCV 90 MCH 29.3 MCHC 32.7 RDW 15.2 H Plt Count 291 Carbonic Acid 1.03 L HCO3/H2CO3 Ratio 16:1 ABG pH 7.31 L ABG pCO2 34.2 L ABG pO2 88.6 ABG HCO3 16.8 L ABG O2 Saturation 96.1 ABG Base Excess -8.5 FiO2 70% Sodium 140.2 Potassium 4.2 Chloride 111 H Carbon Dioxide 17 L Anion Gap 12 BUN 35 H Creatinine 1.74 H Est GFR ( Amer) 49 L Est GFR (Non-Af Amer) 41 L Glucose 181 H Lactic Acid Calcium 7.0 L* Total Bilirubin 0.5 AST 33 ALT 40 Alkaline Phosphatase 70 Total Protein 4.5 L Albumin 2.2 L 08/20/18 18:40 Sputum Gram Stain - Final 08/20/18 18:40 Sputum Sputum Culture - Final 08/19/18 08/20/18 13:02 14:17 Troponin I 0.075 NT-Pro-B Natriuret Pep 2059 H Impressions: Chest X-Ray 08/20/18 21:30 IMPRESSION: Interval increase in widespread bilateral airspace disease. Considerations include multifocal pneumonia, pulmonary edema, or ARDS. Endotracheal tube tip is located 4.3 cm above the boni. Enteric tube tip is located within the gastric body. copyright 2011 [email or web address]- All Rights Reserved Assessment and Plan - Diagnosis (1) Acute respiratory failure with hypoxemia Is this a current diagnosis for this admission?: Yes Plan: Patient has been intubated emergently because of respiratory status deterioration. His condition is relatively stable. Dr. Chen has been consulted. (2) Bilateral pneumonia Is this a current diagnosis for this admission?: Yes Plan: Patient has been started on vancomycin and cefepime. Will de-escalate or escalate his antibiotics based on his clinical response and culture and sensitivity pattern of his tracheal aspirate and blood culture. (3) Leukocytosis Is this a current diagnosis for this admission?: Yes Plan: Slightly trending down. (4) Hypocalcemia Is this a current diagnosis for this admission?: Yes Plan: May be associated with hypoalbuminemia. We will check his ionized fraction of his calcium. (5) Obesity (BMI 30.0-34.9) Is this a current diagnosis for this admission?: Yes Plan: I will counseled the patient when he is extubated and clinically stable. (6) Hypertension Qualifiers: Hypertension type: essential hypertension Qualified Code(s): I10 - Essential (primary) hypertension Is this a current diagnosis for this admission?: Yes Plan: Continue home medication.
[2018-08-21] MEDS ORDERED: LORAZEPAM INJ 2 MG/1 ML VIAL ONE (10:42)
[2018-08-21] MEDS: CEFEPIME HCL 2 GM in DEXTROSE 5%-WATER 50 ML IV SCH ×2 (10:50→21:03)
[2018-08-21] MEDS: GUAIFENESIN SYRP 200 MG/10 ML UDC NG SCH ×2 (10:58→21:00)
[2018-08-21] MEDS: AMLODIPINE BESYLATE 10 MG TABLET NG SCH (10:59)
[2018-08-21] MEDS: PREDNISONE 5 MG TABLET NG SCH (11:03)
[2018-08-21] MEDS ORDERED: LORAZEPAM 1 MG TABLET PO PRN (11:04)
--- NOTE | 2018-08-21 11:04 | RADIOLOGY REPORT (SQ) ---
EXAM DESCRIPTION: CHEST SINGLE VIEW COMPLETED DATE/TIME: 08/21/2018 10:50 am REASON FOR STUDY: CENTRAL LINE PLACEMENT COMPARISON: Earlier the same day. NUMBER OF VIEWS: One view. TECHNIQUE: Single frontal radiographic image of the chest acquired. LIMITATIONS: None. FINDINGS: LUNGS AND PLEURA: Stable appearance. MEDIASTINUM AND HILAR STRUCTURES: Stable heart size and mediastinal structures. HEART AND VASCULAR STRUCTURES: Stable appearance. SUPPORT DEVICES: A right-sided central line has been placed. The catheter tip crosses the midline to murrell the left. This could represent a collateral venous channel. Arterial location cannot be exclud ed on this film. Endotracheal tube and NG tube remain in place. BONES: No acute findings. OTHER: No other significant finding. IMPRESSION: 1. Lung kim are unchanged. 2. Right-sided central line has been placed as described. The tip of the catheter crosses the midli ne in exact position cannot be determined but this could lie within and are material structure. Gutierrez ateral venous channels also a possibility. COMMENT: This report was called to ROJAS MCCONNELL MD at10:58 on 08/21/2018. TECHNICAL DOCUMENTATION: JOB ID: [id number] [employer]- All Rights Reserved Reading location - IP/workstation name: [email or web address]
[2018-08-21] MEDS ORDERED: NORMAL SALINE 500 ML with ROCURONIUM BROMIDE 500 MG IV PRN ×2 (11:07)
[2018-08-21] MEDS ORDERED: LORAZEPAM INJ 2 MG/1 ML VIAL IV ONE (11:30)
[2018-08-21] MEDS ORDERED: LEVOFLOXACIN 750 MG/D5W RTU 750 MG/150 ML RTUPB IV SCH (12:00)
--- NOTE | 2018-08-21 12:25 | RADIOLOGY REPORT (SQ) ---
EXAM DESCRIPTION: CHEST SINGLE VIEW COMPLETED DATE/TIME: 08/21/2018 12:15 pm REASON FOR STUDY: CENTRAL LINE PLACEMENT COMPARISON: Earlier the same day. NUMBER OF VIEWS: One view. TECHNIQUE: Single frontal radiographic image of the chest acquired. LIMITATIONS: None. FINDINGS: LUNGS AND PLEURA: Stable appearance. MEDIASTINUM AND HILAR STRUCTURES: Stable heart size and mediastinal structures. HEART AND VASCULAR STRUCTURES: Stable appearance. SUPPORT DEVICES: A left-sided central line has been placed. Catheter tip overlies the SVC. No pneum othorax. Previously described right-sided central line has been removed. Endotracheal tube NG tube remain in place. BONES: No acute findings. OTHER: No other significant finding. IMPRESSION: 1. Stable appearance of the chest. 2. Right-sided central line previous described is been removed. A new left-sided central line has b een placed. Catheter tip overlies the SVC. TECHNICAL DOCUMENTATION: JOB ID: [id number] [employer]- All Rights Reserved Reading location - IP/workstation name: [email or web address]
[2018-08-21] MEDS: PANTOPRAZOLE SODIUM 40 MG VIAL IV SCH (13:33)
--- NOTE | 2018-08-21 13:40 | Operative Report ---
Bedside Procedure - History of Present Illness Indication for Procedure: IV access for frequent blood draws, IV pressors and IV abx Surgeon: PARISH VELÁSQUEZ - Central Line Left Internal jugular Time completed: 12:00 Consent obtained: Yes Central line pre-insertion: Sterile PPE donned, Chloraprep applied, Sterile drapes applied Central line lumen type: Triple Ultrasound guided: Yes Line secured with sutures: Yes Central line post-insertion: Blood return from lumens, Biopatch applied, S utured, Sterile dressing applied, Position confirmed w/ CXR Number of attempts: 1 Complications: No Notes: 08/21/18 13:35 right subclavian CVC was attempted but despite good blood return, the guide-wire would not advance easily and procedure was aborted. right IJ was inserted but was not clear on CXR that it was in SVC and then was removed. left IJ was a success.
[2018-08-21] MEDS ORDERED: ACETAMINOPHEN 325 MG TABLET PO ONE (14:00)
--- NOTE | 2018-08-21 14:01 | RADIOLOGY REPORT (SQ) ---
EXAM DESCRIPTION: NON-TUNNEL CV CATH COMPLETED DATE/TIME: 08/21/2018 1:22 pm REASON FOR STUDY: NEED FOR VASCULAR ACCESS COMPARISON: None. TECHNIQUE: Grayscale images of the neck were performed prior to central line placement. LIMITATIONS: None. FINDINGS: Single static ultrasound image demonstrates what appears to be and internal jugular vein. Please refer to the operative report for further discussion. IMPRESSION: Ultrasound was provided for vascular access. Please refer to the procedure were report for further discussion. TECHNICAL DOCUMENTATION: JOB ID: [id number] [email or web address]- All Rights Reserved Reading location - IP/workstation name: [email or web address]
[2018-08-21] MEDS ORDERED: ACETAMINOPHEN 650 MG SUPP.RECT PR ONE (14:30)
[2018-08-21] MEDS ORDERED: NORMAL SALINE INJ/PF 0.9% 10 ML SDV IV PRN (14:31)
[2018-08-21] MEDS: NORMAL SALINE 1000 ML 1,000 ML IV PRN ×2 (15:43→21:08)
--- NOTE | 2018-08-21 16:42 | PDOC CONSULTATION ---
Consultation Consult Date: 08/21/18 Attending physician:: CHIOMA WISE Provider Consulted: ROJAS MCCONNELL Consult reason:: acute respiratory failure with hypoxemia History of Present Illness Admission Date/PCP: 08/19/18 14:57 KATERYNA VALENCIA MD History of Present Illness: NAILA CANALES is a 58 year old male currently intubated due to acute respiratory failure. Past Medical History Cardiac Medical History: Reports: Hypertension Pulmonary Medical History: Reports: Bronchitis Past Surgical History Past Surgical History: Reports: Orthopedic Surgery - L knee x2 Social History Smoking Status: Never Smoker Frequency of Alcohol Use: None Hx Recreational Drug Use: No - Advance Directive Resuscitation Status: Full Code Family History Family History: Reviewed & Not Pertinent Parental Family History Reviewed: No Children Family History Reviewed: No Sibling(s) Family History Reviewed.: No Medication/Allergy Home Medications: Albuterol Sulfate [Proair Hfa Inhalation Aerosol 8.5 gm Mdi] 1 puff IH Q6HP PRN 08/19/18 Amlodipine Besylate [Norvasc 10 mg Tablet] 10 mg PO DAILY 08/19/18 Furosemide [Lasix 40 mg Tablet] 40 mg PO QAM 08/19/18 Losartan Potassium [Cozaar 50 mg Tablet] 100 mg PO DAILY 08/19/18 Montelukast Sodium [Singulair 10 mg Tablet] 10 mg PO QHS 08/19/18 Potassium Chloride [Klor-Con 10 Meq Capsule ER] 10 meq PO DAILY 08/19/18 Prednisone [Deltasone 5 mg Tablet] 5 mg PO DAILY 08/19/18 Allergies/Adverse Reactions: No Known Allergies Allergy (Verified 02/03/16 00:46) Review of Systems ROS unobtainable: Due to endotracheal tube Physical Exam Vital Signs: Temp Pulse Resp BP Pulse Ox 102.7 F H 105 H 26 H 92/68 L 98 08/21/18 14:00 08/21/18 14:00 08/21/18 14:00 08/21/18 14:00 08/21/18 14:00 Intake & Output 08/20/18 08/21/18 08/22/18 06:59 06:59 06:59 Intake Total 4400 4563 1198 Output Total 75 1045 700 Balance 4325 3518 498 Weight 96.5 kg 101.5 kg 101.5 kg General appearance: PRESENT: no acute distress Head exam: PRESENT: atraumatic, normocephalic Eye exam: PRESENT: conjunctiva pink Mouth exam: PRESENT: moist, tongue midline, other - ET TUBE Neck exam: ABSENT: carotid bruit, JVD, lymphadenopathy, thyromegaly Respiratory exam: PRESENT: decreased breath sounds, rales - bilateral, rhonchi - scattered rhonchi over right lung field Cardiovascular exam: PRESENT: RRR. ABSENT: diastolic murmur, irregular rhythm Pulses: PRESENT: normal dorsalis pedis pul Vascular exam: PRESENT: normal capillary refill Rectal exam: PRESENT: deferred Neurological exam: ABSENT: awake Psychiatric exam: PRESENT: agitated Skin exam: PRESENT: dry, intact, warm. ABSENT: cyanosis, rash Results Laboratory Results: 08/21/18 04:23 08/21/18 04:23 08/20/18 08/21/18 08/21/18 20:20 00:15 04:23 WBC 22.7 H RBC 4.02 L Hgb 11.8 L Hct 36.0 L MCV 90 MCH 29.3 MCHC 32.7 RDW 15.2 H Plt Count 291 Carbonic Acid 0.98 L 1.09 HCO3/H2CO3 Ratio 21:1 18:1 ABG pH 7.44 7.37 ABG pCO2 32.4 L 36.2 ABG pO2 66.5 L 94.7 ABG HCO3 21.3 20.4 ABG O2 Saturation 94.0 97.1 ABG Base Excess -2.1 -4.3 FiO2 80% BIPAP 100% Sodium Potassium Chloride Carbon Dioxide Anion Gap BUN Creatinine Est GFR ( Amer) Est GFR (Non-Af Amer) Glucose Calcium Total Bilirubin AST ALT Alkaline Phosphatase Total Protein Albumin 08/21/18 08/21/18 04:23 05:45 WBC RBC Hgb Hct MCV MCH MCHC RDW Plt Count Carbonic Acid 1.03 L HCO3/H2CO3 Ratio 16:1 ABG pH 7.31 L ABG pCO2 34.2 L ABG pO2 88.6 ABG HCO3 16.8 L ABG O2 Saturation 96.1 ABG Base Excess -8.5 FiO2 70% Sodium 140.2 Potassium 4.2 Chloride 111 H Carbon Dioxide 17 L Anion Gap 12 BUN 35 H Creatinine 1.74 H Est GFR ( Amer) 49 L Est GFR (Non-Af Amer) 41 L Glucose 181 H Calcium 7.0 L* Total Bilirubin 0.5 AST 33 ALT 40 Alkaline Phosphatase 70 Total Protein 4.5 L Albumin 2.2 L 08/20/18 18:40 Sputum Gram Stain - Final 08/20/18 18:40 Sputum Sputum Culture - Final 08/19/18 08/20/18 13:02 14:17 Troponin I 0.075 NT-Pro-B Natriuret Pep 2060 H Impressions: Chest X-Ray 08/21/18 00:00 IMPRESSION: 1. Stable appearance of the chest. 2. Right-sided central line previous described is been removed. A new left- sided central line has been placed. Catheter tip overlies the SVC. Interventional Vascular Procedure 08/21/18 00:00 IMPRESSION: Ultrasound was provided for vascular access. Please refer to the procedure were report for further discussion. Assessment & Plan - Diagnosis (1) Acute respiratory failure with hypoxemia Is this a current diagnosis for this admission?: Yes Plan: Patient continuing to fight ventilator will add paralytic prn to help him to calm down (2) Bilateral pneumonia Is this a current diagnosis for this admission?: Yes Plan: treat for community acquired pneumonia, cover for atypicals (3) Obesity (BMI 30.0-34.9) Is this a current diagnosis for this admission?: Yes Plan: nutritional consult upon waking - Time Total Critical Time (Minutes): 65 Inpatient Scribe Statement - . Entered by Randee Ackerman, acting as scribe for .
[2018-08-21] MEDS ORDERED: ACETAMINOPHEN SOLN 325 MG/10.15 ML UDCUP ONE (21:02)
[2018-08-21] MEDS: MONTELUKAST SODIUM 10 MG TABLET NG SCH (21:08)
[2018-08-21] MEDS: FENTANYL CITRATE INJ/PF 100 MCG/2 ML AMPUL IV PRN (21:46)
[2018-08-21] MEDS ORDERED: CEFTRIAXONE 2 GM/D5W RTU 2 GM/50 ML RTUPB IV SCH (22:00)
[2018-08-21] MEDS: ACETAMINOPHEN SOLN 325 MG/10.15 ML UDCUP NG PRN (22:30)
[2018-08-22] MEDS: MIDAZOLAM HCL 50 MG/100 ML RTUINJ IV PRN ×5 (00:13→20:29)
[2018-08-22] MEDS: PROPOFOL 1,000 MG/100 ML INFUS..BTL IV PRN ×8 (01:12→23:50)
[2018-08-22] MEDS: DEXTROSE 5%-WATER 250 ML with NOREPINEPHRINE BITARTRATE 4 MG IV PRN ×8 (01:17→20:32)
[2018-08-22] MEDS: VANCOMYCIN HCL 750 MG in DEXTROSE 5%-WATER 250 ML IV SCH ×2 (01:17→15:08)
[2018-08-22] MEDS: IPRATROPIUM/ALBUTEROL 0.5-2.5 MG/3 ML AMPUL NEB SCH ×4 (01:52→20:03)
[2018-08-22] MEDS: HEPARIN SOD (PORCINE) 5,000 UNIT/ML 1 ML SYRINGE SUBCUT SCH ×3 (05:14→21:33)
[2018-08-22] MEDS: FENTANYL CITRATE INJ/PF 100 MCG/2 ML AMPUL IV PRN ×3 (05:15→20:29)
[2018-08-22 05:17] LABS: ARTERIAL BLOOD BASE EXCESS -8.2 mmol/L; ARTERIAL BLOOD H2CO3 0.98 mmol/L (1.05-1.35); ARTERIAL BLOOD HCO3 16.8 mmol/L (20-24); ARTERIAL BLOOD O2 SATURATION 97.7 % (94-98); ARTERIAL BLOOD PCO2 32.7 mmHg (35-45); ARTERIAL BLOOD PH 7.33 (7.35-7.45); ARTERIAL BLOOD PO2 107.8 mmHg (80-100); ARTERIAL BLOOD TOTAL CO2 17.8 mmol/L (23-27)
[2018-08-22 05:18] LABS: ARTERIAL BLOOD FIO2 70%; HEMATOCRIT 34.5 % (37.9-51.0); HEMOGLOBIN 11.3 g/dL (13.5-17.0); MEAN CORPUSCULAR HEMOGLOBIN 29.4 pg (27.0-33.4); MEAN CORPUSCULAR HGB CONC 32.8 g/dL (32.0-36.0); MEAN CORPUSCULAR VOLUME 90 fl (80-97); RED BLOOD COUNT 3.84 10^6/uL (4.35-5.55); RED CELL DISTRIBUTION WIDTH 15.5 % (11.5-14.0); WHITE BLOOD COUNT 23.4 10^3/uL (4.0-10.5)
[2018-08-22 05:37] LABS: ALANINE AMINOTRANSFERASE 41 U/L (21-72); ALBUMIN 2.2 g/dL (3.5-5.0); ALKALINE PHOSPHATASE 79 U/L (38-126); ANION GAP 11 (5-19); ASPARTATE AMINO TRANSFERASE 54 U/L (17-59); BILIRUBIN,DIRECT 0.8 mg/dL (0.0-0.4); BILIRUBIN,TOTAL 0.8 mg/dL (0.2-1.3); BLOOD UREA NITROGEN 39 mg/dL (7-20); CARBON DIOXIDE 18 mmol/L (22-30); CHLORIDE 108 mmol/L (98-107); GLUCOSE 186 mg/dL (75-110); POTASSIUM 4.1 mmol/L (3.6-5.0); SODIUM 137.3 mmol/L (137-145); TOTAL PROTEIN 4.6 g/dL (6.3-8.2)
[2018-08-22 05:44] LABS: ABSOLUTE LYMPHOCYTES# (MANUAL) 0.2 10^3/uL (0.5-4.7); ABSOLUTE MONOCYTES # (MANUAL) 0.2 10^3/uL (0.1-1.4); BAND NEUTROPHILS % (MANUAL) 1 % (3-5); BASOPHILS % (MANUAL) 0 % (0-2); EOSINOPHILS % (MANUAL) 4 % (0-6); LYMPHOCYTES % (MANUAL) 1 % (13-45); MONOCYTES % (MANUAL) 1 % (3-13); PLATELET CLUMPS PRESENT; PLATELET COMMENT ADEQUATE; SEGMENTED NEUTROPHILS % (MAN) 93 % (42-78); TOTAL CELLS COUNTED 100
[2018-08-22 05:45] LABS: ANISOCYTOSIS SLIGHT; CALCIUM 6.8 mg/dL (8.4-10.2); POIKILOCYTOSIS SLIGHT
[2018-08-22 05:46] LABS: PLATELET COUNT 266 10^3/uL (150-450)
[2018-08-22] MEDS: NORMAL SALINE 1000 ML 1,000 ML IV PRN ×3 (07:24→20:07)
[2018-08-22] MEDS ORDERED: CALCIUM GLUCONATE 1000 MG/10 ML INJ IV ONE ×2 (07:41→10:00)
--- NOTE | 2018-08-22 08:43 | RADIOLOGY REPORT (SQ) ---
EXAM DESCRIPTION: CHEST SINGLE VIEW COMPLETED DATE/TIME: 08/22/2018 6:30 am REASON FOR STUDY: resp failure COMPARISON: 08/21/2018 NUMBER OF VIEWS: One view. TECHNIQUE: Single frontal radiographic image of the chest acquired. LIMITATIONS: None. FINDINGS: LUNGS AND PLEURA: Dense consolidation in the right lung. More patchy consolidation in the left lung not significantly changed. No pneumothorax. MEDIASTINUM AND HEART: Stable heart size and mediastinal structures. SUPPORT DEVICES: Appropriate location without change. BONY STRUCTURES: No acute findings. HARDWARE: None. OTHER: No other significant finding. IMPRESSION: STABLE APPEARANCE OF THE CHEST. SUPPORT DEVICES UNCHANGED. Reading location - IP/workstation name: [email or web address]
[2018-08-22 09:03] LABS: HEMATOCRIT 34.8 % (37.9-51.0); HEMOGLOBIN 11.4 g/dL (13.5-17.0); MEAN CORPUSCULAR HEMOGLOBIN 29.3 pg (27.0-33.4); MEAN CORPUSCULAR HGB CONC 32.8 g/dL (32.0-36.0); MEAN CORPUSCULAR VOLUME 89 fl (80-97); PLATELET COUNT 261 10^3/uL (150-450); RED CELL DISTRIBUTION WIDTH 15.5 % (11.5-14.0); WHITE BLOOD COUNT 22.5 10^3/uL (4.0-10.5)
[2018-08-22] MEDS ORDERED: MICAFUNGIN SODIUM INJ/PF 100 MG VIAL IV ONE (09:07)
[2018-08-22 09:19] LABS: ANION GAP 10 (5-19); BLOOD UREA NITROGEN 39 mg/dL (7-20); CARBON DIOXIDE 18 mmol/L (22-30); CHLORIDE 108 mmol/L (98-107); GLUCOSE 151 mg/dL (75-110); POTASSIUM 3.9 mmol/L (3.6-5.0); SODIUM 136.4 mmol/L (137-145)
--- NOTE | 2018-08-22 09:22 | PDOC PROGRESS REPORT ---
Subjective Progress Note for:: 08/22/18 Subjective:: This is 58 years old male patient with no significant medical history except for hypertension and seasonal allergies, presented with chief complaint of shortness of breath hypoxia and fever. He was admitted on August 19 with a diagnosis of right lower lobe pneumonia. Yesterday patient become tachypneic tachycardic and hypoxic at this point his status is upgraded to ICU. While in ICU his condition further deteriorated and patient requires emergent intubation. His blood culture and tracheal aspirate reports as no gross over 24 hours. His repeat chest x-ray this morning shows slight improvement in aeration on the left lung. He has been on cefepime and vancomycin. 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 Mycamine added to his antibiotic regimen. Patient has been on normal saline at rate of 135 mm/h and Levophed. His blood pressure is relatively stable. He is running low-grade fever. His white cell count maintained at 23,000. His kidney function slightly worsened. Reason For Visit: ACUTE HYPOXIC RESPIRATORY FAILURE,SEPSIS,CAP Physical Exam Vital Signs: Temp Pulse Resp BP Pulse Ox 100.6 F H 90 9 L 103/67 97 08/22/18 08:00 08/22/18 08:00 08/22/18 08:00 08/22/18 08:00 08/22/18 08:00 Intake & Output 08/21/18 08/22/18 08/23/18 06:59 06:59 06:59 Intake Total 4563 5057 68 Output Total 1045 1420 125 Balance 3518 3637 -57 Weight 101.5 kg 103.7 kg General appearance: PRESENT: no acute distress Head exam: PRESENT: atraumatic Respiratory exam: PRESENT: crackles, decreased breath sounds - At the lung bases. Cardiovascular exam: PRESENT: RRR. ABSENT: diastolic murmur, rubs, systolic murmur GI/Abdominal exam: PRESENT: normal bowel sounds, soft. ABSENT: distended, guarding, mass, organolmegaly, rebound, tenderness Results Laboratory Results: 08/22/18 08/22/18 08/22/18 05:00 05:00 05:00 WBC 23.4 H RBC 3.84 L Hgb 11.3 L Hct 34.5 L MCV 90 MCH 29.4 MCHC 32.8 RDW 15.5 H Plt Count 266 Seg Neutrophils % Not Reportable Lymphocytes % Not Reportable Monocytes % Not Reportable Eosinophils % Not Reportable Basophils % Not Reportable Absolute Neutrophils Not Reportable Absolute Lymphocytes Not Reportable Absolute Monocytes Not Reportable Absolute Eosinophils Not Reportable Absolute Basophils Not Reportable Carbonic Acid 0.98 L HCO3/H2CO3 Ratio 17:1 ABG pH 7.33 L ABG pCO2 32.7 L ABG pO2 107.8 H ABG HCO3 16.8 L ABG O2 Saturation 97.7 ABG Base Excess -8.2 FiO2 70% Sodium 137.3 Potassium 4.1 Chloride 108 H Carbon Dioxide 18 L Anion Gap 11 BUN 39 H Creatinine 1.82 H Est GFR ( Amer) 47 L Est GFR (Non-Af Amer) 38 L Glucose 186 H Calcium 6.8 L* Ionized Calcium Anant 1.06 L Magnesium 2.5 H Total Bilirubin 0.8 AST 54 ALT 41 Alkaline Phosphatase 79 Total Protein 4.6 L Albumin 2.2 L 08/20/18 18:40 Sputum Gram Stain - Final 08/20/18 18:40 Sputum Sputum Culture - Final 08/19/18 08/20/18 13:02 14:17 Troponin I 0.075 NT-Pro-B Natriuret Pep 2059 H Impressions: Interventional Vascular Procedure 08/21/18 00:00 IMPRESSION: Ultrasound was provided for vascular access. Please refer to the procedure were report for further discussion. Chest X-Ray 08/22/18 06:00 IMPRESSION: STABLE APPEARANCE OF THE CHEST. SUPPORT DEVICES UNCHANGED. Assessment and Plan - Diagnosis (1) Septic shock pulmonary origin Is this a current diagnosis for this admission?: Yes Plan: Patient has leukocytosis, acute kidney injury pneumonia and hypotension which requires fluid resuscitation and pressor. Patient has been started on antibiotics including antifungal namely Mycamine. (2) Acute respiratory failure with hypoxemia Is this a current diagnosis for this admission?: Yes Plan: Continue current regimen (3) Bilateral pneumonia Is this a current diagnosis for this admission?: Yes Plan: Patient has been on cefepime, vancomycin and Mycamine added. (4) Leukocytosis Is this a current diagnosis for this admission?: Yes Plan: Stable. (5) Hypocalcemia Is this a current diagnosis for this admission?: Yes Plan: He is ionized fraction is low. A dose of calcium gluconate and calcium carbonate with vitamin D 3 is scheduled. (6) Obesity (BMI 30.0-34.9) Is this a current diagnosis for this admission?: Yes Plan: I will counseled the patient when he is extubated and clinically stable. (7) Hypertension Qualifiers: Hypertension type: essential hypertension Qualified Code(s): I10 - Essential (primary) hypertension Is this a current diagnosis for this admission?: Yes Plan: Continue home medication.
[2018-08-22 09:32] LABS: CALCIUM 6.8 mg/dL (8.4-10.2)
[2018-08-22 09:37] LABS: ABSOLUTE LYMPHOCYTES# (MANUAL) 0.9 10^3/uL (0.5-4.7); ABSOLUTE MONOCYTES # (MANUAL) 0.7 10^3/uL (0.1-1.4); ABSOLUTE NEUTROPHILS# (MANUAL) 19.6 10^3/uL (1.7-8.2); ANISOCYTOSIS SLIGHT; BAND NEUTROPHILS % (MANUAL) 7 % (3-5); BASOPHILS % (MANUAL) 0 % (0-2); EOSINOPHILS % (MANUAL) 6 % (0-6); LYMPHOCYTES % (MANUAL) 4 % (13-45); MONOCYTES % (MANUAL) 3 % (3-13); PLATELET COMMENT ADEQUATE; POLYCHROMASIA SLIGHT; SEGMENTED NEUTROPHILS % (MAN) 80 % (42-78); TEAR DROP CELLS SLIGHT; TOTAL CELLS COUNTED 100; TOXIC GRANULATION 1+
[2018-08-22] MEDS: CALCIUM CARBONATE 250 MG/VITAMIN D3 125 UNIT TABLET PO SCH ×3 (10:13→18:40)
[2018-08-22] MEDS: PANTOPRAZOLE SODIUM 40 MG VIAL IV SCH (10:13)
[2018-08-22] MEDS: CEFEPIME HCL 2 GM in DEXTROSE 5%-WATER 50 ML IV SCH (10:14)
[2018-08-22] MEDS: AMLODIPINE BESYLATE 10 MG TABLET NG SCH (10:15)
[2018-08-22] MEDS: GUAIFENESIN SYRP 200 MG/10 ML UDC NG SCH ×2 (10:15→21:34)
[2018-08-22] MEDS: PREDNISONE 5 MG TABLET NG SCH (10:15)
[2018-08-22] MEDS: ACETAMINOPHEN SOLN 325 MG/10.15 ML UDCUP NG PRN (10:57)
--- NOTE | 2018-08-22 11:33 | PDOC PROGRESS REPORT ---
Subjective Progress Note for:: 08/22/18 Subjective:: patient currently intubated and sedated Reason For Visit: ACUTE HYPOXIC RESPIRATORY FAILURE,SEPSIS,CAP Physical Exam Vital Signs: Temp Pulse Resp BP Pulse Ox 100.9 F H 94 20 107/67 95 08/22/18 10:37 08/22/18 10:00 08/22/18 10:37 08/22/18 10:37 08/22/18 10:37 Intake & Output 08/21/18 08/22/18 08/23/18 06:59 06:59 06:59 Intake Total 4563 5057 254 Output Total 1045 1420 225 Balance 3518 3637 29 Weight 101.5 kg 103.7 kg General appearance: PRESENT: no acute distress Head exam: PRESENT: atraumatic, normocephalic Eye exam: PRESENT: conjunctiva pink, EOMI, PERRLA. ABSENT: scleral icterus Ear exam: PRESENT: normal external ear exam Mouth exam: PRESENT: moist, tongue midline, other - ET tube Respiratory exam: PRESENT: decreased breath sounds, rales Cardiovascular exam: PRESENT: RRR. ABSENT: diastolic murmur, rubs, systolic murmur Pulses: PRESENT: normal dorsalis pedis pul Vascular exam: PRESENT: normal capillary refill GI/Abdominal exam: PRESENT: normal bowel sounds, soft. ABSENT: distended, guarding, mass, organolmegaly, rebound, tenderness Rectal exam: PRESENT: deferred Extremities exam: PRESENT: full ROM. ABSENT: calf tenderness, clubbing, pedal edema Neurological exam: ABSENT: awake, motor sensory deficit Skin exam: PRESENT: dry, intact, warm. ABSENT: cyanosis, rash Results Laboratory Results: 08/22/18 08:42 08/22/18 08:42 08/22/18 08/22/18 08/22/18 05:00 05:00 05:00 WBC 23.4 H RBC 3.84 L Hgb 11.3 L Hct 34.5 L MCV 90 MCH 29.4 MCHC 32.8 RDW 15.5 H Plt Count 266 Seg Neutrophils % Not Reportable Lymphocytes % Not Reportable Monocytes % Not Reportable Eosinophils % Not Reportable Basophils % Not Reportable Absolute Neutrophils Not Reportable Absolute Lymphocytes Not Reportable Absolute Monocytes Not Reportable Absolute Eosinophils Not Reportable Absolute Basophils Not Reportable Carbonic Acid 0.98 L HCO3/H2CO3 Ratio 17:1 ABG pH 7.33 L ABG pCO2 32.7 L ABG pO2 107.8 H ABG HCO3 16.8 L ABG O2 Saturation 97.7 ABG Base Excess -8.2 FiO2 70% Sodium 137.3 Potassium 4.1 Chloride 108 H Carbon Dioxide 18 L Anion Gap 11 BUN 39 H Creatinine 1.82 H Est GFR ( Amer) 47 L Est GFR (Non-Af Amer) 38 L Glucose 186 H Calcium 6.8 L* Ionized Calcium Anant 1.06 L Magnesium 2.5 H Total Bilirubin 0.8 AST 54 ALT 41 Alkaline Phosphatase 79 Total Protein 4.6 L Albumin 2.2 L 08/22/18 08/22/18 08:42 08:42 WBC 22.5 H RBC 3.90 L Hgb 11.4 L Hct 34.8 L MCV 89 MCH 29.3 MCHC 32.8 RDW 15.5 H Plt Count 261 Seg Neutrophils % Not Reportable Lymphocytes % Not Reportable Monocytes % Not Reportable Eosinophils % Not Reportable Basophils % Not Reportable Absolute Neutrophils Not Reportable Absolute Lymphocytes Not Reportable Absolute Monocytes Not Reportable Absolute Eosinophils Not Reportable Absolute Basophils Not Reportable Carbonic Acid HCO3/H2CO3 Ratio ABG pH ABG pCO2 ABG pO2 ABG HCO3 ABG O2 Saturation ABG Base Excess FiO2 Sodium 136.4 L Potassium 3.9 Chloride 108 H Carbon Dioxide 18 L Anion Gap 10 BUN 39 H Creatinine 1.91 H Est GFR ( Amer) 44 L Est GFR (Non-Af Amer) 36 L Glucose 151 H Calcium 6.8 L* Ionized Calcium Anant Magnesium Total Bilirubin AST ALT Alkaline Phosphatase Total Protein Albumin 08/20/18 18:40 Sputum Gram Stain - Final 08/20/18 18:40 Sputum Sputum Culture - Final 08/19/18 08/20/18 13:02 14:17 Troponin I 0.075 NT-Pro-B Natriuret Pep 2059 H Impressions: Interventional Vascular Procedure 08/21/18 00:00 IMPRESSION: Ultrasound was provided for vascular access. Please refer to the procedure were report for further discussion. Chest X-Ray 08/22/18 06:00 IMPRESSION: STABLE APPEARANCE OF THE CHEST. SUPPORT DEVICES UNCHANGED. Assessment & Plan - Diagnosis (1) Acute respiratory failure with hypoxemia Is this a current diagnosis for this admission?: Yes Plan: Patient intubated at this time (2) Bilateral pneumonia Is this a current diagnosis for this admission?: Yes Plan: treat for community acquired pneumonia, cover for atypicals (3) Obesity (BMI 30.0-34.9) Is this a current diagnosis for this admission?: Yes Plan: nutritional consult upon waking - Time Total Critical Time (Minutes): 40 Inpatient Scribe Statement - . Entered by Randee Ackerman, acting as scribe for .
[2018-08-22] MEDS ORDERED: MICAFUNGIN SODIUM 150 MG in NORMAL SALINE 100 ML IV SCH (12:00)
[2018-08-22 14:45] LABS: VANCOMYCIN,TROUGH 14.4 ug/mL (5.0-20.0)
[2018-08-22 17:28] LABS: ARTERIAL BLOOD BASE EXCESS -7.3 mmol/L; ARTERIAL BLOOD FIO2 50%; ARTERIAL BLOOD HCO3 16.6 mmol/L (20-24); ARTERIAL BLOOD O2 SATURATION 92.1 % (94-98); ARTERIAL BLOOD PCO2 29.8 mmHg (35-45); ARTERIAL BLOOD PH 7.36 (7.35-7.45); ARTERIAL BLOOD TOTAL CO2 17.5 mmol/L (23-27)
[2018-08-22] MEDS ORDERED: HYDROCORTISONE SOD SUCCINATE INJ/PF 100 MG/2 ML SDV IV ONE (20:00)
[2018-08-22] MEDS: LORAZEPAM INJ 2 MG/1 ML VIAL IV PRN (21:33)
[2018-08-22] MEDS ORDERED: CEFTRIAXONE 2 GM/D5W RTU 2 GM/50 ML RTUPB IV SCH (22:00)
[2018-08-22] MEDS: MONTELUKAST SODIUM 10 MG TABLET NG SCH (22:27)
[2018-08-22] MEDS ORDERED: CEFTRIAXONE 2 GM/D5W RTU 2 GM/50 ML RTUPB IV ONE (22:36)
[2018-08-23] MEDS: VANCOMYCIN HCL 750 MG in DEXTROSE 5%-WATER 250 ML IV SCH (01:00)
[2018-08-23] MEDS: MIDAZOLAM HCL 50 MG/100 ML RTUINJ IV PRN ×2 (01:02→08:21)
[2018-08-23] MEDS: IPRATROPIUM/ALBUTEROL 0.5-2.5 MG/3 ML AMPUL NEB SCH ×2 (01:55→08:06)
[2018-08-23] MEDS: PROPOFOL 1,000 MG/100 ML INFUS..BTL IV PRN ×3 (03:06→11:00)
[2018-08-23 03:30] LABS: HEMATOCRIT 33.7 % (37.9-51.0); HEMOGLOBIN 11.2 g/dL (13.5-17.0); MEAN CORPUSCULAR HEMOGLOBIN 29.6 pg (27.0-33.4); MEAN CORPUSCULAR HGB CONC 33.1 g/dL (32.0-36.0); MEAN CORPUSCULAR VOLUME 89 fl (80-97); RED BLOOD COUNT 3.77 10^6/uL (4.35-5.55); RED CELL DISTRIBUTION WIDTH 15.5 % (11.5-14.0); WHITE BLOOD COUNT 23.5 10^3/uL (4.0-10.5)
[2018-08-23 03:47] LABS: ALANINE AMINOTRANSFERASE 45 U/L (21-72); ALKALINE PHOSPHATASE 98 U/L (38-126); ANION GAP 12 (5-19); ASPARTATE AMINO TRANSFERASE 62 U/L (17-59); BAND NEUTROPHILS % (MANUAL) 1 % (3-5); BASOPHILS % (MANUAL) 0 % (0-2); BILIRUBIN,DIRECT 0.6 mg/dL (0.0-0.4); BILIRUBIN,TOTAL 0.6 mg/dL (0.2-1.3); BLOOD UREA NITROGEN 39 mg/dL (7-20); CARBON DIOXIDE 16 mmol/L (22-30); CHLORIDE 107 mmol/L (98-107); EOSINOPHILS % (MANUAL) 2 % (0-6); GLUCOSE 177 mg/dL (75-110); POTASSIUM 4.4 mmol/L (3.6-5.0); SODIUM 134.8 mmol/L (137-145); TOTAL CELLS COUNTED 100; TOTAL PROTEIN 4.3 g/dL (6.3-8.2)
[2018-08-23 03:48] LABS: ABSOLUTE LYMPHOCYTES# (MANUAL) 0.2 10^3/uL (0.5-4.7); ABSOLUTE MONOCYTES # (MANUAL) 0.5 10^3/uL (0.1-1.4); ABSOLUTE NEUTROPHILS# (MANUAL) 22.3 10^3/uL (1.7-8.2); LYMPHOCYTES % (MANUAL) 1 % (13-45); MONOCYTES % (MANUAL) 2 % (3-13); SEGMENTED NEUTROPHILS % (MAN) 94 % (42-78)
[2018-08-23 03:50] LABS: ANISOCYTOSIS SLIGHT; PLATELET CLUMPS PRESENT; PLATELET COMMENT ADEQUATE; POIKILOCYTOSIS SLIGHT; TOXIC GRANULATION 2+
[2018-08-23 03:52] LABS: PLATELET COUNT 281 10^3/uL (150-450)
[2018-08-23] MEDS: NORMAL SALINE 1000 ML 1,000 ML IV PRN (04:00)
[2018-08-23 04:23] LABS: ARTERIAL BLOOD BASE EXCESS -10.1 mmol/L; ARTERIAL BLOOD H2CO3 0.94 mmol/L (1.05-1.35); ARTERIAL BLOOD HCO3 15.1 mmol/L (20-24); ARTERIAL BLOOD O2 SATURATION 94.7 % (94-98); ARTERIAL BLOOD PCO2 31.1 mmHg (35-45); ARTERIAL BLOOD PO2 78.6 mmHg (80-100)
[2018-08-23] MEDS: HEPARIN SOD (PORCINE) 5,000 UNIT/ML 1 ML SYRINGE SUBCUT SCH (05:18)
[2018-08-23] MEDS: FENTANYL CITRATE INJ/PF 100 MCG/2 ML AMPUL IV PRN (05:27)
[2018-08-23] MEDS ORDERED: NORMAL SALINE 1000 ML 1,000 ML IV PRN (07:32)
--- NOTE | 2018-08-23 07:36 | RADIOLOGY REPORT (SQ) ---
EXAM DESCRIPTION: XR CHEST 1 VIEW COMPLETED DATE/TME: 08/23/2018 06:00 CLINICAL HISTORY: 58 years Male, resp failure COMPARISON: One day prior. NUMBER OF VIEWS/TECHNIQUE: 1/AP FINDINGS: Moderate mixed interstitial and airspace opacity worsened at the right lower lung. Moderate right basilar opacity-effusion. Adequate appearing endotracheal tube. Adequate appearing enteric tube partially obscured. Adequate appearing left subclavian central line. Normal cardiac silhouette size. No pneumothorax. Stable bony thorax. IMPRESSION: Moderate mixed interstitial and airspace opacity worsened at the right lower lung. Moderate right basilar opacity-effusion.
[2018-08-23 10:35] VITALS: BP 99/61
--- NOTE | 2018-08-23 10:39 | PDOC TRANSFER SUMMARY ---
General Admission Date/PCP: 08/19/18 14:57 KATERYNA VALENCIA MD Admission Date: 08/19/18 Transfer Date: 08/23/18 Resuscitation Status: Full Code - Transfer Diagnosis (1) Septic shock pulmonary origin Is this a current diagnosis for this admission?: Yes (2) Acute respiratory failure with hypoxemia Is this a current diagnosis for this admission?: Yes (3) Bilateral pneumonia Is this a current diagnosis for this admission?: Yes (4) Leukocytosis Is this a current diagnosis for this admission?: Yes (5) Hypocalcemia Is this a current diagnosis for this admission?: Yes (6) Obesity (BMI 30.0-34.9) Is this a current diagnosis for this admission?: Yes (7) Hypertension Is this a current diagnosis for this admission?: Yes - Transfer Medications Home Medications: Albuterol Sulfate [Proair Hfa Inhalation Aerosol 8.5 gm Mdi] 1 puff IH Q6HP PRN 08/19/18 Amlodipine Besylate [Norvasc 10 mg Tablet] 10 mg PO DAILY 08/19/18 Furosemide [Lasix 40 mg Tablet] 40 mg PO QAM 08/19/18 Losartan Potassium [Cozaar 50 mg Tablet] 100 mg PO DAILY 08/19/18 Montelukast Sodium [Singulair 10 mg Tablet] 10 mg PO QHS 08/19/18 Potassium Chloride [Klor-Con 10 Meq Capsule ER] 10 meq PO DAILY 08/19/18 Prednisone [Deltasone 5 mg Tablet] 5 mg PO DAILY 08/19/18 Transfer Medications: Current Medications Acetaminophen (Tylenol Soln 325 Mg/10.15 Ml Udcup) 650 mg NG Q4HP PRN PRN Reason: FEVER >100.4 Stop: 09/20/18 21:49 Last Admin: 08/22/18 10:57 Dose: 650 mg Documented by: Albuterol (Ventolin 0.083% Neb 2.5 Mg/3 Ml Ampul) 2.5 mg NEB RTQ4HP PRN PRN Reason: SHORTNESS OF BREATH Stop: 09/19/18 19:13 Albuterol/Ipratropium (Duoneb 3 Ml Ampul) 3 ml NEB RTQ6 NICOLÁS Stop: 09/19/18 19:59 Last Admin: 08/23/18 08:06 Dose: 3 ml Documented by: Amlodipine Besylate (Norvasc 10 Mg Tablet) 10 mg NG DAILY [facility] Stop: 09/19/18 09:59 Last Admin: 08/22/18 10:15 Dose: 10 mg Documented by: Calcium Carbonate (Os-Martin 250 Mg With Vitamin D 125 Units) 1 tab PO BID [facility] Stop: 09/21/18 09:59 Last Admin: 08/22/18 18:40 Dose: 1 tab Documented by: Fentanyl Citrate (Sublimaze Inj/Pf 100 Mcg/2 Ml Ampule) 100 mcg IV Q4HP PRN PRN Reason: FOR PAIN Stop: 08/27/18 20:44 Last Admin: 08/23/18 05:27 Dose: 100 mcg Documented by: Guaifenesin (Robitussin Syrup 200 Mg/10 Ml Ud Cup) 600 mg NG Q12 [facility] Stop: 09/20/18 09:59 Last Admin: 08/22/18 21:34 Dose: 600 mg Documented by: Heparin Sodium (Porcine) (Heparin Inj 5,000 Units/Ml 1 Ml Syringe) 5,000 unit SUBCUT Q8 [facility] Stop: 09/18/18 21:59 Last Admin: 08/23/18 05:18 Dose: 5,000 unit Documented by: Heparin Sodium (Porcine) (Heparin Flush 10 Unit/Ml 5 Ml Disp.Syrg) 30 unit IV Q8 [facility] Stop: 09/20/18 21:59 Last Admin: 08/23/18 05:18 Dose: Not Given Documented by: Heparin Sodium (Porcine) (Heparin Flush 10 Unit/Ml 5 Ml Disp.Syrg) 30 unit IV .AFTER EACH USE PRN PRN Reason: AFTER EACH INTERMITTENT USE Stop: 09/20/18 14:30 Vancomycin HCl 750 mg/ (Dextrose) 250 mls @ 166.667 mls/hr IV Q12@0200,1400 [facility] Stop: 08/27/18 13:59 Last Infusion: 08/23/18 02:30 Dose: Infused Documented by: Propofol (Diprivan Rtu 1000 Mg/100 Ml Inf.Bottle) 1,000 mg in 100 mls @ 2.949 mls/hr IV CONTINUOUS PRN; Protocol PRN Reason: THIS MED IS NOT "PRN" Stop: 09/19/18 20:44 Last Admin: 08/23/18 06:30 Dose: 40 mcg/kg/min, 23.59 mls/hr Documented by: Norepinephrine Bitartrate 4 mg (/ Dextrose) 250 mls @ 0 mls/hr IV CONTINUOUS PRN; Protocol PRN Reason: THIS MED IS NOT "PRN" Stop: 09/20/18 02:33 Last Titration: 08/23/18 06:31 Dose: 2 mcg/min, 7.5 mls/hr Documented by: Midazolam HCl (Versed Rtu 50 Mg/100 Ml Premix Bag) 50 mg in 100 mls @ 0 mls/hr IV CONTINUOUS PRN; Protocol PRN Reason: THIS MED IS NOT "PRN" Stop: 08/28/18 02:33 Last Admin: 08/23/18 08:21 Dose: 4 mg/hr, 8 mls/hr Documented by: Rocuronium Hackberry 500 mg/ (Sodium Chloride) 500 mls @ 0 mls/hr IV CONTINUOUS PRN; Protocol PRN Reason: THIS MED IS NOT "PRN" Stop: 09/20/18 11:06 Micafungin Sodium 150 mg/ (Sodium Chloride) 100 mls @ 100 mls/hr IV DAILY@1200 [facility] Stop: 08/29/18 11:59 Last Infusion: 08/22/18 15:03 Dose: Infused Documented by: Ceftriaxone Sodium/Dextrose (Rocephin Rtu 2 Gm/D5w 50 Ml Premix Bag) 2 gm in 50 mls @ 100 mls/hr IV QHS [facility] Stop: 08/29/18 21:59 Last Infusion: 08/22/18 23:19 Dose: Infused Documented by: Sodium Chloride (Nacl 0.9% 1000 Ml Iv Soln) 1,000 mls @ 200 mls/hr IV CONTINUOUS PRN PRN Reason: THIS MED IS NOT "PRN" Stop: 09/20/18 10:23 Lorazepam (Ativan Inj 2 Mg/1 Ml Vial) 0.5 mg IV Q4HP PRN PRN Reason: ANXIETY Stop: 08/27/18 00:01 Last Admin: 08/22/18 21:33 Dose: 0.5 mg Documented by: Montelukast Sodium (Singulair 10 Mg Tablet) 10 mg NG QHS [facility] Stop: 09/18/18 21:59 Last Admin: 08/22/18 22:27 Dose: 10 mg Documented by: Pantoprazole Sodium (Protonix Iv Inj 40 Mg Vial) 40 mg IV DAILY [facility] Stop: 08/24/18 11:29 Last Admin: 08/22/18 10:13 Dose: 40 mg Documented by: Pharmacy Profile Note (Medication Communication Order) 1 each .NOTICE NR Stop: 09/20/18 01:29 Prednisone (Deltasone 5 Mg Tablet) 5 mg NG DAILY [facility] Stop: 09/19/18 09:59 Last Admin: 08/22/18 10:15 Dose: 5 mg Documented by: Sodium Chloride (Nacl 0.9% Inj/Pf 10 Ml Sdv) 10 ml IV .AFTER EACH USE PRN PRN Reason: AFTER EACH INTERMITTENT USE Stop: 09/20/18 14:30 - Allergies Allergies/Adverse Reactions: No Known Allergies Allergy (Verified 02/03/16 00:46) Hospital Course Hospital Course: NAILA CANALES is a 58 year old male with a history of hypertension and seasonal allergies who reports from his primary care provider's office with hypoxia and shortness of breath. He said he first started feeling bad about 4 days ago. Had fevers at home, 1 of which was recorded at 101 F. He was apparently sweating so bad that one night they had to change to bed sheets 3 times because he sweated through them. He has not been eating very much, has been try to drink some fluids. He was having a lot of shortness of breath. He had a productive cough. His primary care provider's office today and apparently was hypoxic on room air 87% SPO2. He was sent to the emergency department. Was found to have a right lower lobe pneumonia on chest x-ray. His white cell count maintained at 23,000 and his creatinine ranged between 1.74 and 1.91. He also had some evidence of organ dysfunction in the form of acute kidney injury. Initially patient admitted to [facility] and had been started on vancomycin, and c eftriaxone. For his hypoxia he was put on BiPAP. On the second day of his admission patient decompensated so he is transferred to ICU where he is emergently intubated. While in ICU patient has intermittent fever, tachypnea and hypotension. He has been on normal saline and Levophed. Repeat chest x- rays shows worsening of opacity on the right lung and extension of the consultation to the left. In addition to ceftriaxone and vancomycin Mycamine is added empirically. Patient remained hypotensive and tachypneic so at this point patient is going to be transferred to tertiary center at [facility]. Physical Exam Vital Signs: Temp Pulse Resp BP Pulse Ox 98.6 F 88 26 H 88/59 L 94 08/23/18 08:00 08/23/18 08:06 08/23/18 08:06 08/23/18 08:00 08/23/18 08:06 Intake & Output 08/22/18 08/23/18 08/24/18 06:59 06:59 06:59 Intake Total 5057 3127 Output Total 1420 1035 60 Balance 3637 2092 -60 Weight 103.7 kg 108.6 kg General appearance: PRESENT: severe distress Head exam: PRESENT: atraumatic Respiratory exam: PRESENT: crackles, decreased breath sounds Cardiovascular exam: PRESENT: RRR. ABSENT: diastolic murmur, rubs, systolic murmur Results Laboratory Results: 08/23/18 03:00 08/23/18 03:00 08/22/18 08/23/18 08/23/18 16:10 03:00 03:00 WBC 23.5 H RBC 3.77 L Hgb 11.2 L Hct 33.7 L MCV 89 MCH 29.6 MCHC 33.1 RDW 15.5 H Plt Count 281 Seg Neutrophils % Not Reportable Lymphocytes % Not Reportable Monocytes % Not Reportable Eosinophils % Not Reportable Basophils % Not Reportable Absolute Neutrophils Not Reportable Absolute Lymphocytes Not Reportable Absolute Monocytes Not Reportable Absolute Eosinophils Not Reportable Absolute Basophils Not Reportable Carbonic Acid 0.90 L HCO3/H2CO3 Ratio 18:1 ABG pH 7.36 ABG pCO2 29.8 L ABG pO2 64.0 L ABG HCO3 16.6 L ABG O2 Saturation 92.1 L ABG Base Excess -7.3 FiO2 50% Sodium 134.8 L Potassium 4.4 Chloride 107 Carbon Dioxide 16 L Anion Gap 12 BUN 39 H Creatinine 1.87 H Est GFR ( Amer) 45 L Est GFR (Non-Af Amer) 37 L Glucose 177 H Calcium 7.0 L* Magnesium 2.4 H Total Bilirubin 0.6 AST 62 H ALT 45 Alkaline Phosphatase 98 Total Protein 4.3 L Albumin 2.0 L 08/23/18 04:05 WBC RBC Hgb Hct MCV MCH MCHC RDW Plt Count Seg Neutrophils % Lymphocytes % Monocytes % Eosinophils % Basophils % Absolute Neutrophils Absolute Lymphocytes Absolute Monocytes Absolute Eosinophils Absolute Basophils Carbonic Acid 0.94 L HCO3/H2CO3 Ratio 16:1 ABG pH 7.30 L ABG pCO2 31.1 L ABG pO2 78.6 L ABG HCO3 15.1 L ABG O2 Saturation 94.7 ABG Base Excess -10.1 FiO2 55% Sodium Potassium Chloride Carbon Dioxide Anion Gap BUN Creatinine Est GFR ( Amer) Est GFR (Non-Af Amer) Glucose Calcium Magnesium Total Bilirubin AST ALT Alkaline Phosphatase Total Protein Albumin 08/19/18 08/20/18 08/23/18 13:02 14:17 03:00 Troponin I 0.075 NT-Pro-B Natriuret Pep 2060 H 1580 H Impressions: Interventional Vascular Procedure 08/21/18 00:00 IMPRESSION: Ultrasound was provided for vascular access. Please refer to the procedure were report for further discussion. Chest X-Ray 08/23/18 06:00 IMPRESSION: Moderate mixed interstitial and airspace opacity worsened at the right lower lung. Moderate right basilar opacity-effusion.
--- NOTE | 2018-08-27 09:22 | PDOC PROGRESS REPORT ---
Subjective Progress Note for:: 08/23/18 Subjective:: patient currently intubated and sedated, currently working on transfer to [facility] Reason For Visit: ACUTE HYPOXIC RESPIRATORY FAILURE,SEPSIS,CAP Physical Exam Vital Signs: Temp Pulse Resp BP Pulse Ox 99.1 F 87 0 L 99/61 L 94 08/23/18 10:24 08/23/18 10:00 08/23/18 10:24 08/23/18 10:24 08/23/18 10:24 General appearance: PRESENT: no acute distress Head exam: PRESENT: atraumatic, normocephalic Eye exam: PRESENT: conjunctiva pink, EOMI, PERRLA. ABSENT: scleral icterus Ear exam: PRESENT: normal external ear exam Mouth exam: PRESENT: moist, tongue midline Neck exam: ABSENT: carotid bruit, JVD, lymphadenopathy, thyromegaly Respiratory exam: PRESENT: decreased breath sounds, rales Cardiovascular exam: PRESENT: RRR Pulses: PRESENT: normal dorsalis pedis pul Vascular exam: PRESENT: normal capillary refill GI/Abdominal exam: PRESENT: normal bowel sounds, soft. ABSENT: distended, guarding, mass, organolmegaly, rebound, tenderness Rectal exam: PRESENT: deferred Extremities exam: PRESENT: full ROM. ABSENT: calf tenderness, clubbing, pedal edema Neurological exam: ABSENT: awake Skin exam: PRESENT: dry, intact, warm. ABSENT: cyanosis, rash Results Laboratory Results: 08/23/18 03:00 08/23/18 03:00 08/22/18 21:29 Tracheal Aspirate Gram Stain - Final 08/22/18 21:29 Tracheal Aspirate Sputum Culture - Final NO GROWTH 3 DAYS 08/19/18 08/20/18 08/23/18 13:02 14:17 03:00 Troponin I 0.075 NT-Pro-B Natriuret Pep 2060 H 1580 H Impressions: Interventional Vascular Procedure 08/21/18 00:00 IMPRESSION: Ultrasound was provided for vascular access. Please refer to the procedure were report for further discussion. Chest X-Ray 08/23/18 06:00 IMPRESSION: Moderate mixed interstitial and airspace opacity worsened at the right lower lung. Moderate right basilar opacity-effusion. Assessment & Plan - Diagnosis (1) Acute respiratory failure with hypoxemia Is this a current diagnosis for this admission?: Yes Plan: continue mechanical ventilation (2) Bilateral pneumonia Is this a current diagnosis for this admission?: Yes Plan: treat for community acquired pneumonia, cover for atypicals (3) Obesity (BMI 30.0-34.9) Is this a current diagnosis for this admission?: Yes Plan: nutritional consult upon waking - Time Total Critical Time (Minutes): 45 Inpatient Scribe Statement - . Entered by Randee Ackerman, acting as scribe for .
== END 2018-08-23 12:35 | disposition short-term general hospital (02) | DRG 871 ==
LOC: ER 12:47 → EH 14:57 → 3N 19:42 → ICU 08-20 13:05
PROVIDERS: ADMIT Family Medicine; ATTEND Family Medicine
PROC: 5A1945Z Respiratory Ventilation, 24-96 Consecutive Hours (ICD-10-PCS; principal; 2018-08-20)
PROC: 0BH17EZ Insertion of Endotracheal Airway into Trachea, Via Natural or Artificial Opening (ICD-10-PCS; 2018-08-20)
PROC: 02HV33Z Insertion of Infusion Device into Superior Vena Cava, Percutaneous Approach (ICD-10-PCS; 2018-08-21)
DX: A41.9 Sepsis, unspecified organism (principal); J18.9 Pneumonia, unspecified organism; J96.01 Acute respiratory failure with hypoxia; R65.21 Severe sepsis with septic shock; N17.9 Acute kidney failure, unspecified; I10 Essential (primary) hypertension; E83.51 Hypocalcemia; E66.9 Obesity, unspecified; J30.2 Other seasonal allergic rhinitis; Z82.49 Family history of ischemic heart disease and other diseases of the circulatory system; Z79.51 Long term (current) use of inhaled steroids; Z79.899 Other long term (current) drug therapy
CPT/HCPCS: 31500; 36415; 36556; 71045; 76937; 80048; 80053; 80202; 81001; 82330; 82803; 82962; 83605; 83735; 83880; 84484; 85025; 85027; 87040; 87070; 87205; 93005; 93010; 94002; 94003; 94660; C1751; J0330; J0456; J0610; J0692; J0696; J1644; J1720; J1940; J2060; J2248; J2250; J2543; J2704; J3010; J3370; J3490; J7030; J7050; J7060; J7120; J7512; J7620; S0164

== ENCOUNTER 2018-12-14 19:14 | Emergency (ER) | payer SELFPAY ==
[~2018-12-14 19:14] MED LIST: AMIODARONE HCL INJ 150 MG/3 ML VIAL IV ONE; EPINEPHRINE INJ 1 MG/10 ML DISP.SYRIN ONE
--- NOTE | 2018-12-14 19:34 | ER Document Report ---
ED General - General Information source: Emergency Med Personnel TRAVEL OUTSIDE OF THE [place] IN LAST 30 DAYS: No <VAIBHAV BAKER - Last Filed: 12/14/18 20:05> <ANA DAVIDSON - Last Filed: 12/15/18 06:53> - General Stated Complaint: NON RESPONSIVE Time Seen by Provider: 12/14/18 19:22 Primary Care Provider: KATERYNA VALENCIA MD [Primary Care Provider] - Follow up as needed Notes: HPI: 58-year-old male with unknown past medical history presents today status post cardiac arrest witnessed by his . Patient was shocked x3 for ventricular fibrillation by EMS as well as provided epinephrine x3 and amiodarone 300 mg. Return of spontaneous circulation with intubation with a 7.5 ET tube. Normal glucose. Vital signs stable upon arrival. ROS: See HPI All other review of systems reviewed and otherwise negative Reviewed vital signs and nursing note as charted by RN. PHYSICAL EXAM: CONSTITUTIONAL: Intubated being bagged HEAD: Normocephalic; atraumatic EYES: 2 mm bilaterally and unreactive; Conjunctivae clear, sclerae non-icteric ENT: Normal nose; no rhinorrhea NECK: Supple; no cervical lymphadenopathy, no masses CARD: Regular rate and rhythm; no murmurs; weak pulses to all 4 extremities initially RESP: Normal chest excursion with bagging with bilateral breath sounds ABD/GI: Normal bowel sounds; non-distended; soft, no palpable masses BACK: The back appears normal EXT: 2+ bilateral lower extremity edema SKIN: No acute lesions noted NEURO: No spontaneous movements (VAIBHAV BAKER) - HPI Notes: Dictated (ANA DAVIDSON) - Related Data Allergies/Adverse Reactions: metoprolol Allergy (Verified 12/14/18 20:27) Past Medical History - Social History Family History: Reviewed & Not Pertinent - Past Medical History Cardiac Medical History: Reports: Hx Hypertension Pulmonary Medical History: Reports: Hx Bronchitis Renal/ Medical History: Denies: Hx Peritoneal Dialysis Past Surgical History: Reports: Hx Orthopedic Surgery - L knee x2 - Immunizations Hx Diphtheria, Pertussis, Tetanus Vaccination: Yes <VAIBHAV BAKER - Last Filed: 12/14/18 20:05> - Social History Smoking Status: Unknown if Ever Smoked Frequency of alcohol use: Rare Lives with: Family Family History: Reviewed & Not Pertinent <LETYANA - Last Filed: 12/15/18 06:53> Review of Systems <LETYSURENDRAHÉCTOR - Last Filed: 12/15/18 06:53> - Review of Systems Notes: Dictated (EVANGELISTAHÉCTORNikitaANA) Physical Exam - Vital signs Vitals: BP Pulse Ox 0/0 L 88 L 12/14/18 19:19 12/14/18 19:19 Course - Laboratory Result Diagrams: 12/14/18 19:20 12/14/18 19:20 <VAIBHAV BAKER - Last Filed: 12/14/18 20:05> - Laboratory Result Diagrams: 12/14/18 19:20 12/14/18 19:20 - Diagnostic Test Radiology reviewed: Reports reviewed - Right pleural effusion, ET tube slightly above the boni, central line in place <NITHIN DAVIDSONROLANDAHÉCTOR - Last Filed: 12/15/18 06:53> - Re-evaluation Re-evalutation: 12/14/18 19:34 Patient had an episode where his heart rate dropped into the 40s. Pulses were lost. 1 epinephrine was injected with compressions return of spontaneous circulation. Levophed is currently at 9. I added an epi drip at 5. X-ray of the portable chest shows what appears to be some possible atelectasis or consolidation to the right lung field. Speaking with it appears that the patient recently was seen at [facility] for heart failure with possibly an EF of 11. 12/14/18 19:43 Patient has had 2 episodes of losing pulses. At one point the patient had ventricular fibrillation and was shocked it with 200 J with return of spontaneous circulation. Patient is on an epinephrine drip at 10, Levophed drip at 10. EKG shows a heart rate of 70, low QRS, no obvious ST elevation or depression. 12/14/18 19:45 X-ray of the chest shows a partially collapsed right lung with what appears to be a pleural effusion. Tube does appear to be 2 to 3 cm high. 12/14/18 20:05 I have spoken at length with the . Supposedly a catheterization around 2 weeks ago and was told that the patient is not a candidate for CABG. EF is 11%. 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 Multiple visits in and out of hospitals. He was supposed to be wearing a LifeVest, but he did not like the heavy feeling. Patient was down for an extended period of time (VAIBHAV BAKER) 12/14/18 21:21 [facility] was contacted, transfer arrangements are made, since patient was treated in this hospital recently. Transfer accepted. Maxed out on epinephrine and Levophed, therefore dopamine started to maintain the blood pressure. Patient remained critical but stable (ANA DAVIDSON) - Vital Signs Vital signs: Temp Pulse Resp BP Pulse Ox 23 H 106/62 100 12/14/18 21:46 12/14/18 21:46 12/14/18 21:42 - Laboratory Laboratory results interpreted by me: 12/14/18 12/14/18 12/14/18 19:20 19:20 19:20 Hgb 12.1 L MCH 25.6 L MCHC 30.9 L RDW 17.7 H Eos % (Auto) 7.0 H PT 23.9 H BUN 25 H Creatinine 1.72 H Est GFR ( Amer) 50 L Est GFR (MDRD) Non-Af 41 L Glucose 153 H Alkaline Phosphatase 137 H Creatine Kinase 36 L Total Protein 5.6 L Albumin 2.8 L Procedures - Central Line Left Internal jugular Time completed: 21:20 Consent obtained: Yes Central line pre-insertion: Betadine prep applied, Chloraprep applied Central line size (Fr.): 24 Central line lumen type: Cordis/Introducer Anesthetic type: 1% Lidocaine mL's of anesthesia: 5 Ultrasound guided: No Line secured with sutures: Yes Central line post-insertion: Blood return from lumens, Biopatch applied, Sutured, Sterile dressing applied, Position confirmed w/ CXR Complications: No <ANA DAVIDSON - Last Filed: 12/15/18 06:53> Critical Care Note - Critical Care Note Total time excluding time spent on procedures (mins): 45 <VAIBHAV BAKER - Last Filed: 12/14/18 20:05> Discharge <VAIBHAV BAKER - Last Filed: 12/14/18 20:05> <ANA DAVIDSON - Last Filed: 12/15/18 06:53> - Discharge Clinical Impression: Cardiac arrest Condition: Serious Disposition: [facility] Referrals: KATERYNA VALENCIA MD [Primary Care Provider] - Follow up as needed
[2018-12-14 19:36] LABS: ABSOLUTE BASOPHILS # (AUTO) 0.1 10^3/uL (0.0-0.2); ABSOLUTE EOSINOPHILS # (AUTO) 0.6 10^3/uL (0.0-0.6); ABSOLUTE NEUT (AUTO) 4.3 10^3/uL (1.7-8.2); BASOPHILS % (AUTO) 0.8 % (0-2); HEMATOCRIT 39.2 % (37.9-51.0); HEMOGLOBIN 12.1 g/dL (13.5-17.0); LYMPHOCYTES % (AUTO) 33.1 % (13-45); MEAN CORPUSCULAR HEMOGLOBIN 25.6 pg (27.0-33.4); MEAN CORPUSCULAR HGB CONC 30.9 g/dL (32.0-36.0); MEAN CORPUSCULAR VOLUME 83 fl (80-97); MONOCYTES % (AUTO) 10.8 % (3-13); PLATELET COUNT 271 10^3/uL (150-450); RED BLOOD COUNT 4.73 10^6/uL (4.35-5.55); RED CELL DISTRIBUTION WIDTH 17.7 % (11.5-14.0); SEGMENTED NEUTROPHILS % (AUTO) 48.3 % (42-78); TOTAL CELLS COUNTED % (AUTO) 100 %; WHITE BLOOD COUNT 8.9 10^3/uL (4.0-10.5)
[2018-12-14 19:42] LABS: PROTHROMBIN TIME 23.9 SEC (11.4-15.4)
--- NOTE | 2018-12-14 19:46 | RADIOLOGY REPORT (SQ) ---
EXAM DESCRIPTION: CHEST SINGLE VIEW COMPLETED DATE/TIME: 12/14/2018 7:32 pm REASON FOR STUDY: postarrest COMPARISON: 08/23/2018 TECHNIQUE: Single frontal radiographic view of the chest acquired. NUMBER OF VIEWS: One view. LIMITATIONS: None. FINDINGS: LUNGS AND PLEURA: No pneumothorax. Moderate right pleural effusion. Mild basilar subsegm ental atelectasis. MEDIASTINUM AND HILAR STRUCTURES: Stable. HEART AND VASCULAR STRUCTURES: Stable. BONES: No acute findings. HARDWARE: Endotracheal tube tip overlies the mid trachea. OTHER: No other significant finding. IMPRESSION: Endotracheal tube tip overlies the mid trachea.Moderate right pleural effusion. Mild ba silar subsegmental atelectasis. TECHNICAL DOCUMENTATION: JOB ID: [id number] [place]-[id number] 2010 [employer]- All Rights Reserved Reading location - IP/workstation name: [email or web address]
[2018-12-14 20:06] LABS: CREATINE KINASE MB 0.93 ng/mL (<4.55); TROPONIN I 0.026 ng/mL
[2018-12-14 20:09] LABS: ALBUMIN 2.8 g/dL (3.5-5.0); ALKALINE PHOSPHATASE 137 U/L (38-126); ANION GAP 13 (5-19); ASPARTATE AMINO TRANSFERASE 50 U/L (17-59); BILIRUBIN,DIRECT 0.2 mg/dL (0.0-0.4); BILIRUBIN,TOTAL 0.3 mg/dL (0.2-1.3); BLOOD UREA NITROGEN 25 mg/dL (7-20); CALCIUM 8.4 mg/dL (8.4-10.2); CARBON DIOXIDE 23 mmol/L (22-30); CHLORIDE 103 mmol/L (98-107); CREATINE KINASE 36 U/L (55-170); GLUCOSE 153 mg/dL (75-110); POTASSIUM 3.7 mmol/L (3.6-5.0); TOTAL PROTEIN 5.6 g/dL (6.3-8.2)
[2018-12-14] MEDS ORDERED: DOPAMINE HCL/DEXTROSE 5%-WATER 800 MG/250 ML RTUINJ IV PRN (20:50)
[2018-12-14] MEDS ORDERED: EPINEPHRINE INJ/PF 1 MG/1 ML AMPULE ONE ×3 (20:53→22:02)
[2018-12-14] MEDS ORDERED: FENTANYL CITRATE INJ/PF 100 MCG/2 ML AMPUL ONE (21:28)
[2018-12-14] MEDS ORDERED: FENTANYL CITRATE INJ/PF 100 MCG/2 ML AMPUL IV ONE (21:38)
--- NOTE | 2018-12-14 21:50 | RADIOLOGY REPORT (SQ) ---
EXAM DESCRIPTION: XR CHEST 1 VIEW COMPLETED DATE/TME: 12/14/2018 21:26 CLINICAL HISTORY: 58 years, Male, Post central line COMPARISON: 12/14/2018 chest x-ray at 7:28 PM NUMBER OF VIEWS: 1 TECHNIQUE: Portable chest LIMITATIONS: None. FINDINGS: Heart size is stable. Endotracheal tube, with the tip 2.8 cm above the boni. Central venous catheter with the tip likely at the brachiocephalic/caval junction. Enteric tube, the distal tip is not visible. Extensive airspace opacities of the right hemithorax. Lung bases not entirely included on the exam. Patchy airspace opacity left lung base. No pneumothorax IMPRESSION: Lines and catheters in place as above. No discrete pneumothorax. Other findings grossly stable. copyright 2010 [employer]- All Rights Reserved
[2018-12-14 21:55] VITALS: BP 106/62
--- NOTE | 2018-12-15 10:21 | EKG REPORT ---
SEVERITY:- ABNORMAL ECG - SINUS RHYTHM NONSPECIFIC INTRAVENTRICULAR CONDUCTION DELAY LOW VOLTAGE WITH RIGHT AXIS DEVIATION BORDERLINE R WAVE PROGRESSION, ANTERIOR LEADS : Confirmed by: Nano Drew MD 15-Dec-2018 10:20:24
== END 2018-12-14 22:45 | disposition short-term general hospital (02) ==
LOC: ER 19:14
DX: I46.9 Cardiac arrest, cause unspecified (principal); I11.0 Hypertensive heart disease with heart failure; I50.9 Heart failure, unspecified; Z91.19 Patient's noncompliance with other medical treatment and regimen; I49.01 Ventricular fibrillation; J98.19 Other pulmonary collapse; Z88.8 Allergy status to other drugs, medicaments and biological substances
CPT/HCPCS: 93005; 36415; 82553; 82550; 85025; 85610; 80053; 84484; 71045; 94660; 93010; 36556; J1265; J0171; J3010; J0282; 51702; 96365; 96375; 99291